=== PATIENT | female | born 2000 | race African-American/Black ===

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

== ENCOUNTER 2021-11-09 15:48 | Emergency (ER) | payer OTHER, SELFPAY ==
[2021-11-09 15:58] VITALS: BP 121/77; PULSE 101; RESP 18; TEMP 36.6; O2SAT 100
[2021-11-09 17:08] LABS: Basophils Percent Auto 0.7 % (0.2-1.2); Eosinophils Percent Auto 0.9 % (0-4.4); Hematocrit 37.1 % (37.0-47.0); Hemoglobin 11.5 g/dL (12.0-15.0); Lymphocytes Absolute Auto 1.44 K/mm3 (0.9-3.2); Mean Corpuscular Hemoglobin 25.4 pg (26-34); Mean Corpuscular Volume 81.9 fl (80-100); Monocytes Absolute Auto 0.5 K/mm3 (0.1-0.6); Monocytes Percent Auto 10.6 % (2.6-8.5); Neutrophils Absolute Auto 2.4 K/mm3 (1.3-6.7); Neutrophils Percent Auto 54.8 % (45.5-73.1); Platelet Count Result 203 k/mm3 (150-375); Red Blood Count 4.53 M/mm3 (4.2-5.4); Red Cell Distribution Width 16.5 % (11.5-14.5); White Blood Count 4.4 K/mm3 (4.5-10.0)
[2021-11-09 17:12] LABS: Appearance Urine Clear (Clear); Bilirubin Urine Negative (Negative); Blood Urine Negative (Negative); Color Urine Yellow (Yellow); Glucose Urine UA Negative (Negative); Ketones Urine Negative (Negative); Leukocyte Esterase Ur Negative LEU/UL (Negative); Nitrate Urine Negative (Negative); Protein Urine Trace mg/dL (Negative); Specific Grav Ur >= 1.030 (1.001-1.035); Urobilinogen Urine 0.2 mg/dL (<2.0); pH Urine 5.5 (5.0-9.0)
[2021-11-09 17:19] LABS: Alanine Aminotransferase 19 U/L (4-35); Albumin Level 4.1 g/dL (3.5-5.1); Alkaline Phosphatase 43 U/L (38-126); Anion Gap 3 mmol/L (8-16); Aspartate Amino Transferase 46 U/L (14-36); Bilirubin,Total 0.3 mg/dL (0.2-1.3); Blood Urea Nitrogen 8 mg/dL (7-17); Calcium 8.8 mg/dL (8.4-10.2); Carbon Dioxide 25 mmol/L (22-30); Chloride 107 mmol/L (98-107); Estimated CRCL calculation 87 ml/min; Estimated Glomerular Filt Rate > 60; Glucose 84 mg/dL (65-110); Potassium 3.6 mmol/L (3.4-5.0); Sodium 135 mmol/L (137-145)
[2021-11-09 17:29] LABS: Mucus Urine Heavy /lpf; RBC Urine 0-2 /hpf (0-2); Squamous Epithelial Cell Urine Few /hpf (Few); WBC Urine 0-3 /hpf
--- NOTE | 2021-11-09 17:38 | ED.FEMALEGU ---
HPI - Female Genitourinary General Chief complaint: Vaginal Bleeding Stated complaint: vaginal bleeding Time Seen by Provider: 11/09/21 16:04 Source: patient History of Present Illness HPI Narrative: Patient presents with vaginal spotting. She was previously on the Depo shot removed in July was having normal menses until approximately 2 weeks ago. 2 weeks ago she started her normal menses but has continued to have some vaginal spotting she describes scant spotting denies any passage of blood clots denies any abdominal pain nausea vomiting or diarrhea. Reports prior to the Provera she had normal menses as well. Reports she is sexually active not using any form of contraception at this time. She denies any vaginal bleeding or discharge denies any urinary symptoms Related Data Home Medications Medication Instructions Recorded Confirmed ferrous sulfate [Iron (ferrous 325 mg PO DAILY 11/09/21 sulfate)] Allergies Allergy/AdvReac Type Severity Reaction Status Date / Time No Known Allergies Allergy Verified 11/09/21 16:24 Review of Systems Review of Systems: CONSTITUTIONAL: Denies fever, chills, or sweats. EYES: Denies visual changes, redness, or discharge. ENT: Denies rhinorrhea, congestion, sore throat, or otalgia. CARDIOVASCULAR: Denies chest pain, palpitations, or edema. RESPIRATORY: Denies cough or dyspnea. GASTROINTESTINAL: Denies abdominal pain, nausea, vomiting, or diarrhea. GENITOURINARY: Denies dysuria or hematuria. SKIN: Denies rash or itching. MUSCULOSKELETAL: Denies back pain, joint pain, or myalgia. NEUROLOGIC: Denies headache, numbness, dizziness, or weakness. PSYCHIATRIC: Denies anxiety or depression. All systems reviewed & are unremarkable except as noted in HPI and below PMFSH Past Medical History Medical History (Updated 11/09/21 @ 17:41 by Montrell Hilton MD) ADHD Social History Social History Smoking status: Unknown if ever smoked Gender identity (if verbalized by the patient): Female Exam Narrative: GENERAL: Well-appearing, well-nourished, and in no acute distress. HEAD: Normocephalic, atraumatic. EYES: PERRLA and EOMI. ENT: Nares clear, no rhinorrhea or epistaxis. Mucous membranes moist. NECK: Supple. No masses. No JVD ABDOMEN: Soft, nontender, nondistended, normal active bowel sounds. : Medical [employer] Technicians present throughout the entire exam. There are no external lesions or inguinal lymphadenopathy no ulceration. Speculum exam was with scant white discharge in the vaginal vault no active bleeding no blood at the cervical os EXTREMITIES: Normal range of motion. No edema. SKIN: Warm, dry, no rash. NEURO: No focal deficits. Alert and oriented x3. PSYCH: Normal mood and affect. Course Reevaluation(s) Reevaluation #1: Patient resting comfortably results and plan reviewed with patient. Patient is comfortable outpatient plan. Date: 11/09/21 Time: 17:38 Vital Signs Vital signs: Vital Signs Temperature 36.6 C 11/09/21 15:58 Pulse Rate 101 H 11/09/21 15:58 Respiratory Rate 18 11/09/21 15:58 Blood Pressure 121/77 11/09/21 15:58 Pulse Oximetry 100 11/09/21 15:58 Temperature 36.6 C 11/09/21 15:58 Pulse Rate 101 H 11/09/21 15:58 Respiratory Rate 18 11/09/21 15:58 Blood Pressure 121/77 11/09/21 15:58 Pulse Oximetry 100 11/09/21 15:58 MDM - Female Genitourinary MDM Narrative Medical decision making narrative: H&P as above, vss, pt looks clinically well, exam with scant white discharge in the vaginal vault, labs clinically unremarkable to include a urine , additional labs/img considered. symptomatic relief available as needed, patient was offered empiric antibiotics for STIs declined appears to follow-up with her primary care provider with regards her test results prior to initiating therapies on reevaluation pt continues to looks clinically well. Symptoms remain of unclear etiology, dns si
[2021-11-09 17:48] LABS: Add Urine Microscopic? YES
== END 2021-11-09 17:49 | disposition home or self-care (01) ==
PROVIDERS: Emergency Provider Emergency Medicine; PCP Pediatrics
DX: N93.9 Abnormal uterine and vaginal bleeding, unspecified (principal)
CPT/HCPCS: 36415; 80053; 81001; 81025; 85025; 87070; 87147; 87491; 87591; 87808; 99284

== ENCOUNTER 2023-06-05 15:54 | Emergency (ER) | payer OTHER, SELFPAY ==
--- NOTE | ~2023-06-05 | US_ITS ---
EXAMINATION: US pelvic complete w TV DATE: 06/05/2023 21:45 INDICATION: Possible retained products of conception on outside institution ultrasound TECHNIQUE: Multiple transabdominal and endovaginal sonographic images of the pelvis were obtained. COMPARISON: None. FINDINGS: The anteverted uterus measures 7.7 x 3.7 x 5.9 cm. The endometrial complex measures 10 mm in thickne ss. There appears to be a greater than typical fundal internal indentation between the uterine horns suspicious for an arcuate uterus. There is a heterogeneous appearance to the endometrial complex with a central 1.7 x 0.7 x 1.1 cm hypoechoic region with internal vascular flow extending from the myomet rium likely representing some retained products of conception with differential including endometrial polyp or pedunculated submucosal fibroid.. The right ovary measures 4.1 x 1.5 x 3.3 cm. The left ova ry measures 2.8 x 2.0 x 1.5 cm. Vascular flow is identified in both ovaries on color Doppler. There a re several anechoic cysts/follicles at both ovaries. There is a small amount of free fluid in the pel vis. IMPRESSION: 1. Ovoid mass or hypoechoic region within the endometrial complex with differential including retaine d products of conception or pre-existing endometrial polyp or pedunculated submucosal fibroid. 2. 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 Reviewed, dictated and finalized at location [facility] IMPRESSION: 1. Ovoid mass or hypoechoic region within the endometrial complex with differen tial including retained products of conception or pre-existing endometrial poly p or pedunculated submucosal fibroid. 2. 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
[2023-06-05 15:54] VITALS: BP 117/67; PULSE 100; RESP 16; TEMP 37.1; O2SAT 100
[2023-06-05 20:01] LABS: Basophils Percent Auto 0.6 % (0.2-1.2); Eosinophils Percent Auto 0.8 % (0-4.4); Hematocrit 39.2 % (37.0-47.0); Hemoglobin 12.6 g/dL (12.0-15.0); Immature Granulocyte Absolute 0.01 K/mm3 (0.00-0.031); Immature Granulocyte Percent A 0.2 % (0-0.5); Lymphocytes Absolute Auto 1.56 K/mm3 (0.9-3.2); Lymphocytes Percent Auto 32.6 % (18.3-44.2); Mean Corpuscular HGB Conc 32.1 g/dl (32-36); Mean Corpuscular Hemoglobin 26.6 pg (26-34); Mean Corpuscular Volume 82.7 fl (80-100); Mean Platelet Volume 11.8 fl (7.4-10.4); Monocytes Absolute Auto 0.5 K/mm3 (0.1-0.6); Neutrophils Absolute Auto 2.7 K/mm3 (1.3-6.7); Neutrophils Percent Auto 55.8 % (45.5-73.1); Platelet Count Result 221 k/mm3 (150-375); Red Blood Count 4.74 M/mm3 (4.2-5.4); Red Cell Distribution Width 13.5 % (11.5-14.5); White Blood Count 4.8 K/mm3 (4.5-10.0)
[2023-06-05 20:07] LABS: Appearance Urine Clear (Clear); Bacteria Urine Rare /hpf; Bilirubin Urine Negative (Negative); Blood Urine Negative (Negative); Color Urine Yellow (Yellow); Glucose Urine UA Negative (Negative); Ketones Urine Negative (Negative); Leukocyte Esterase Ur Negative LEU/UL (Negative); Nitrate Urine Negative (Negative); Non Pathogenic Casts 0-2; Protein Urine Trace mg/dL (Negative); RBC Urine 0-2 /hpf (0-2); Specific Grav Ur 1.021 (1.001-1.035); Squamous Epithelial Cell Urine Occasional /hpf (Few); WBC Urine 0-5 /hpf
[2023-06-05 20:12] LABS: Add Urine Microscopic? YES
[2023-06-05 20:23] LABS: Alanine Aminotransferase 16 U/L (6-35); Albumin Level 4.8 g/dL (3.5-5.1); Alkaline Phosphatase 48 U/L (38-126); Anion Gap 12 mmol/L (8-16); Aspartate Amino Transferase 23 U/L (14-36); Bilirubin,Total 0.3 mg/dL (0.2-1.3); Blood Urea Nitrogen 10 mg/dL (7-17); Calcium 9.5 mg/dL (8.4-10.2); Carbon Dioxide 24 mmol/L (22-30); Chloride 103 mmol/L (98-107); Estimated CRCL calculation 93 ml/min; Estimated Glomerular Filt Rate > 60; Glucose 93 mg/dL (65-110); Potassium 3.3 mmol/L (3.4-5.0); Sodium 139 mmol/L (137-145)
[2023-06-05 20:39] LABS: Beta HCG Quantitative 12.52 mIU/ML
--- NOTE | 2023-06-05 21:31 | ED.PREGNANCY ---
HPI - General Chief complaint: Vaginal Bleeding Stated complaint: vaginal bleeding Time Seen by Provider: 06/05/23 20:37 Source: patient and old records reviewed Mode of arrival: ambulatory Limitations: no limitations History of Present Illness HPI Narrative: Patient is a 23 y/o female who presents to the ED with c/o vaginal bleeding. Patient reports she you developed vaginal bleeding earlier this month. She was seen at a hospital in [place] on 05/19 and found out she was . Last normal menstrual period was in March. Reports 1 previous at age 18 which resulted in a stillbirth. Patient's beta hCG level at her hospital visit was 284. She had an ultrasound obtained and showed evidence for retained POC. Patient was advised to follow-up with OBGYN, however she has not done so. She developed bleeding again yesterday into today which prompted her presentation. She reports some intermittent cramping. Denies nausea, vomiting, fevers, feeling ill otherwise. Related Data Home Medications Medication Instructions Recorded Confirmed ferrous sulfate 325 mg (65 mg 325 mg PO DAILY 11/09/21 iron) tablet (Iron (ferrous sulfate)) Allergies Allergy/AdvReac Type Severity Reaction Status Date / Time No Known Allergies Allergy Verified 06/05/23 18:20 Review of Systems Review of Systems: CONSTITUTIONAL: Denies fever, chills, or sweats. GASTROINTESTINAL: See HPI. GENITOURINARY: See HPI. SKIN: Denies rash or itching. MUSCULOSKELETAL: Denies back pain, joint pain, or myalgia. All systems reviewed & are unremarkable except as noted in HPI and below PMFSH Past Medical History Medical History ADHD Social History Social History Smoking status: Unknown if ever smoked Gender identity (if verbalized by the patient): Female Exam Narrative: GENERAL: Well appearing, well-nourished, non-toxic, in no acute distress. HEAD: Normocephalic, atraumatic. NECK: Supple. No adenopathy, no masses. RESPIRATORY: Airway patent, respirations nonlabored. Clear to auscultation bilaterally, no rales, rhonchi, wheezing. CARDIOVASCULAR: Regular rate and rhythm without murmurs, rubs, or gallops. Peripheral pulses 2+ and equal bilaterally. ABDOMINAL: Soft, No significant tenderness throughout abdomen, nondistended, no hepatosplenomegaly. Normoactive BS. PELVIC: Normal external genitialia. no bleeding or clots noted, and no visible products in vaginal vault. Mild amount of white physiologic discharge present. No significant CMT. MUSCULOSKELETAL: Moves all extremities. Strength/ROM intact without gross deformities. SKIN: Warm, dry, normal color. No rashes. NEURO: A&O X3. Speech clear. Cranial nerves II-XII grossly intact. Steady gait. No ataxic movements. PSYCHIATRIC: Appropriate mood and affect. Normal interaction. Course Vital Signs Vital signs: Vital Signs Temperature 98.7 F 06/05/23 15:54 Pulse Rate 100 06/05/23 15:54 Respiratory Rate 16 06/05/23 15:54 Blood Pressure 117/67 06/05/23 15:54 Pulse Oximetry 100 06/05/23 15:54 Oxygen Delivery Room Air 06/05/23 15:54 Temperature 98.4 F 06/05/23 22:23 Pulse Rate 87 06/05/23 22:23 Respiratory Rate 18 06/05/23 22:23 Blood Pressure 112/71 06/05/23 22:23 Pulse Oximetry 100 06/05/23 22:23 Oxygen Delivery Room Air 06/05/23 15:54 MDM - OB/Uterine Contractions MDM Narrative Medical decision making narrative: Patient presented to ED the with vaginal bleeding, recently told she had been /miscarried, ultrasound performed at out of state hospital showing retained POC. Vital stable upon arrival. Patient no acute distress. Nontoxic appearing. Beta quant today only 12. Appropriately down trending from previous records at outside hospital with level of 284. pelvic exam was
[2023-06-05 22:23] VITALS: BP 112/71; PULSE 87; RESP 18; TEMP 36.9; O2SAT 100
== END 2023-06-05 22:24 | disposition home or self-care (01) ==
PROVIDERS: Student in an Organized Health Care Education/Training Program; Emergency Provider Physician Assistant
DX: O02.1 Missed abortion (principal)
CPT/HCPCS: 36415; 76830; 76856; 80053; 81001; 81025; 84702; 85025; 86850; 86900; 86901; 99284

== ENCOUNTER 2024-08-12 16:03 | Emergency (ER) | payer OTHER, SELFPAY ==
--- OUTSIDE RECORDS SUMMARY | 2024-08-12 16:28 | XMS_ITS | Data Portability ---
Author Organization [facility] [place] Address [address] [place] [address] Assessment Encounter Date Assessment Date Assessment LastModified by Organization Details LastModified Time 07/15/2021 07/15/2021 Annual gynecological exam performed. Patient will come back in a year unless there are new symptoms. [email or web address] Not available 07/15/2021 11:12:25 Plan of Treatment Reminders Order Date Submit Date Provider Last Modified By Organization Details Last Modified Time Details Appointments None recorded. Lab None recorded. Referral None recorded. Procedures None recorded. Surgeries None recorded. Imaging None recorded. Medication Orders Depo-Horse Wrangler a 150 mg/mL intramuscul ar syringe 2021 022 [id number], [address], [place], [id number], 16:55:44 Depo-Horse Wrangler a 150 mg/mL intramuscul ar syringe 2021 022 [id number], [address], [place], [id number], 11:32:59 Patient TargetsNo targets recorded. Patient InstructionsNo instructions recorded. Reason for Referral None Reported. Results Created Date Observation Date Name Description Value Unit Range Abnormal Flag Note LastModifiedBy Organization Detail LastModifiedTime 01/05/20 22 01/04/2022 BHCG, QUANT ITATI VE B-HCG <0.2 mIU/m L This assay was perfo rmed using [employer] ratio n reage nts and test kits. Value s obtai pearl with other assay metho ds or kits canno t be used inter alexandra eably . Refer ence Range s: Non-p regna nt, preme nopau daniel women : 0.0-5 .3 mIU/m L Postm enopa usal women : 0.0-7 .0 mIU/m L Naila l Pregn benjy: Gesta palmer l Age bHCG Conc. - mIU/m L 3 Weeks 5.8 - 71.7 4 Weeks 9.5 - 750 5 Weeks 217-7 138 6 Weeks 158 - 31,79 5 7 Weeks 3,697 - 162,5 63 8 Weeks 32,06 5 - 149,5 71 9 Weeks 63,80 3 - 151,4 10 10 Weeks 46,50 9 - 186,9 77 12 Weeks 27,83 2 - 210,6 12 14 Weeks 13,95 0 - 62,53 0 15 Weeks 12,03 9 - 70,97 1 16 Weeks 9,040 - 56,45 1 17 Weeks 8,175 - 55,86 8 18 Weeks 8,099 - 58,17 6 Not Available [facility] (Lab) [address], [place], [address], 01/05/2022 05:00:12 Result Notes None recorded. Problems Name Problem SNOMED Code Status Onset Date Resolution Date Notes Provider Name and Address Organization Details Recorded Time Delivery finding Completed 201807/15/2021 labor w/ delivery, fetus 1;Recorde d Elsewhere : No Locati on: [facility] So urce: EHR Chron ic: N Practic e ID: [id number] Bill able Time: 09:00:00 AM Lois [facility] 2 10:57:30 Clinical finding Completed 201807/15/2021 Encounter for surveilla nce of injectabl e contracep tive;Tad rded Elsewhere : No Locati on: [facility] So urce: EHR Chron ic: N Practic e ID: [id number] Bill able Time: 09:30:00 AM Lois Andre [facility] 2 10:57:27 Uses combined oral contrace ption [id number] Completed 201807/15/2021 Encounter for initial prescript ion of contracep tive pills;Pra ctice ID: [id number] Lois Andre [facility] 2 10:57:28 Problem Notes None recorded. Medical Equipment None Reported. Allergies No known drug allergies Medications Name Sig Start Date Stop Date Status Note LastModified by Organization Details LastModified Time medroxypro gesterone 150 mg/mL intramuscu lar suspension inject 1 millilite r by intramusc ular route every 3 months 2018 active Prescribe d Elsewhere : No Locati on: [facility] Srinivasan french By: beckran En counter DateTime: 9 05:16:55 PM Not Available Not Available Not Available medroxypro gesterone 150 mg/mL intramuscu lar syringe ADMINISTE R 1 ML IN THE MUSCLE EVERY 3 MONTHS active Not Available Not Available No t Available Vitals Date Recorded Body height Body mass index (BMI) Body mass index (BMI) Percentile per age and sex Body weight Systolic blood pressure Diastolic blood pressure Provider Name and Address Organization Details Last Updated DateTime 2 158.75 cm 22.9 kg/m2 62 % 73023.2 3 g 122 mm[Hg] 78 mm[Hg] Lois Andre [facility] 2 11:13:12 Social History Question Answer Notes LastModified by Organizat ion Details LastModified Time Tobacco Smoking Status Never Smoker Lois Andre [facility] 07/15/2021 11:05:04 What Is Your Level Of Alcohol Consumption? None Information not available 07/15/2021 Are You Blind Or Do You Have Difficulty Seeing? No Information not available 07/15/2021 What Is Your Level Of Caffeine Consumption? Occasional Information not available 07/15/2021 Are You Deaf Or Do You Have Serious Difficulty Hearing? No Information not available 07/15/2021 What Type Of Diet Are You Following? REGULAR Information not available 07/15/2021 Do You Use Your Seat Belt Or Car Seat Routinely? Yes Information not available 07/15/2021 Do You Have Smoke And Carbon Monoxide Detectors In Your Home? Yes Information not available 07/15/2021 Do You Feel Stressed (tense, Restless, Nervous, Or Anxious, Or Unable To Sleep At Night)? [id number] Information not available 07/15/2021 Do You Use Any Illicit Or Recreational Drugs? No Information not available 07/15/2021 Do You Use Sunscreen Routinely? Yes Information not available 07/15/2021 Sex: Unknown Functional Status Question Answer Note LastModified by Organizat ion Details LastModified Time Are you able to walk? YESWOREST Information not available 07/15/2021 What is your exercise level? Occasional Information not available 07/15/2021 Mental Status None recorded. Family History Relationship Description Onset Age of this Age Resolved Age Notes LastModified by Organization Details LastModified Time Maternal Grandmother Asthma Not available 2021 11:04:26 Maternal Grandmother Diabetes mellitus Not available 2021 11:04:34 Sister Asthma Not available 12/2021 11:04:26 Unspecified Relation Malignant neoplasm of bone matern al cousin Not available 07/15/2021 11:14:56 Medical History Condition Response Depression/ depression Y Gynecological History Statement/Question Response Date of LMP 07/14/2021 STIs/STDs N Current Control Method None Are cycles usually normal Y Sexually Active? Y Menses Monthly Y Age of first menstrual cycle 11 Date of Last Pap Smear Sexual Problems? N Desired Control Method Hormonal In jection LMP Definite Obstetrics History GPAL:G 1 P 0 0 0 0 Type Value Living 0 Total 1 Past Encounters Encounter ID Performer Location Encounter Start Date Encounter Closed Date Diagnosis/Indication Diagnosis SNOMED-CT Code Diagnosis ICD10 Code Diagnosis Note [id number] ROS [facility] [address] [address] 07/15/2021 10:40:52 07/15/2021 12:12:11 Gynecologic examination 26059023 Z01.419 Take Calcium with Vitamin D 1200mg daily if not receiving in daily diet. It is strongly advised to have an annual flu shot and up can obtain at most pharmacies . If you have not had a TDap shot in the last 10 years you should obtain one as well. Discussed with patient & provided with informatio n regarding Gardisil vaccine to prevent the 4 strains for HPV that cause cervical cancer. Encourage safe sexual practices, to use condoms and limit partners if not already in a monogamous relationsh ip. Do monthly self breast exams. BRCA testing is now available for patients with strong genetic history of female cancer. If interested contact the office. Engage in daily exercise of low impact aerobic exercise 45-60 minutes 4-5 times weekly. Avoid tobacco, illicit drugs, and alcohol. This lifestyle behavior pattern will lead to less health conditions and longer life span. If BMI greater than 25 weight watchers or dietary consult advised. Pap smear is not recommende d prior to the age of 21. If you have any concerns, pelvic, or vaginal problems we can discuss testing. Patient received above instructio ns, and questions have been answered. If you have any questions please call or respond to this email. Patient was made aware of the patient portal and may obtain a paper copy of today's plan if desired.Pr imary pap due next year.Discu ssed cervical cancer screening. STD urine sent.Smoki ng cessation encouraged . Contracept ion care management 902684800 Z30.9 On menses today & would like to restart Depo injections for contracept ion & period regulation .She is aware that a back up method such as condoms is recommende d for the first 4wks to avoid . Depo frequency/ routine of administra tion, risks/bene fits, most common side effects, contraindi cations discussed today with understand ing reviewed.S he has previously been on this method so is familiar with regimen.Wi ll go to pharmacy & grab the medication which can be administer ed today.Unde rstanding verbalized . [id number] Augustina Martinez , [facility] [address] [address] 07/15/2021 16:52:32 07/16/2021 11:13:58 Contraception care management [id number] Z30.9 On menses today & would like to restart Depo injections for contracept ion & period regulation .She is aware that a back up method such as condoms is recommende d for the first 4wks to avoid . Depo frequency/ routine of administra tion, risks/bene fits, most common side effects, contraindi cations discussed today with understand ing reviewed.S he has previously been on this method so is familiar with regimen.Wi ll go to pharmacy & grab the medication which can be administer ed today.Unde rstanding verbalized . Health Concerns Section Related Observation LastModified by Organization Detai ls LastModified Time None Recorded Concern Status LastModified by Organization Details LastModified Time None Recorded Advance Directives Directive None Recorded Payers Encounter Date Sequence Insurance Name Policy Number Policy Monzon Covered Member ID Monzon Member ID Guarantor Name 07/15/2021 1 [facility] ON OR AFTER 01/07/21 (MEDICAID REPLACEMENT - HMO) Betty Page [id number] Betty Page 07/15/2021 1 [facility] ON OR AFTER 01/07/21 (MEDICAID REPLACEMENT - HMO) Betty Page [id number] Betty Page Notes Date Note Type Note Provider Name and Address Organization Details Recorded Time 07/15/2021 text/html Annual GYNReport ed bypatient.History:n o gynecologic complaints Menstrual cycle:Normal menses Urinary symptoms:No hematuria; No incontinence Vulva:No genital lesion Vagina:Normal vaginal discharge Breast:No breast pain; No breast lump; No nipple discharge Current Contraception:Condo ms; Wants to discuss contraceptive options; Requests testing for sexually transmitted infections Sexual complaints:No sexual complaints; No pain during intercourse; Normal libido Menopausal Symptoms:No menopausal symptoms; Normal vaginal lubrication Psychological symptoms:No depression; No anxiety; No PMDD Preventive measures:Encourage self breast examination; Encourage regular exercise; Encourage no tobacco use; Encourage regular mammograms starting age 40 Augustina Martinez, [facility] [address], [place], [address], [facility] 07/16/2021 11:05:25 OBGyn Episode Ob Episode Information Episode Created Date Number of Fetuses Patient Bloodtype Patient rh Status Prepregnancy Weight lbs Domestic Partner Domestic Partner Phone Father Name Dredge Hand Status 07/15/19 22 1 CLOSED Fetus Data First Name Last Name Admitted to NICU Weight (g) Sex Living Outcome Pediatric Complications Fetus ID Race Codes Race Delivery Type M Demise [id number] Vaginal Delivery Stanley Calculation Initial Stanley Date Initial Exam Date Initial Exam Provider Initial Ultrasound Date Last Menstrual Period Date Ultra Sound Weeks Gestation 0 Eighteen To Twenty Week Stanley Update Ultra Sound Date Fundal Height At Umbil Quickening Date Ultra Sound Latest Weeks Gestation Final Stanley Confirmed By Final Stanley Confirmed Date Final Stanley Date Ultra Sound Latest Days Gestation 0 0 Menstrual History Last Menstrual Date Menses Monthly On Bcp Conception Prior Menses Frequency Hcg Plus Date Menarche Onset Age Delivery Information Delivery Date Delivery Type Labor Anesthesia Weeks Gestation Incision Type Labor Labor Length Hrs Delivered By Post Complications Tubal Sterilization Discharge Date Comments 9 Discharge Information Feeding Method Contraceptive Method Maternal HG B and HCT Levels
[2024-08-12 16:30] VITALS: BP 118/63; PULSE 107; RESP 18; TEMP 36.1; O2SAT 100
--- NOTE | 2024-08-12 16:33 | ED.GENADULT ---
[facility] - General Adult General Chief complaint: Unspecified Stated complaint: suture removal - foot Time Seen by Provider: 08/12/24 16:33 Source: patient Mode of arrival: ambulatory Limitations: no limitations History of Present Illness HPI narrative: 24-year-old female presents to the ED for removal of right foot sutures after 1 week. Reports some pain to the area but no drainage. Denies fevers or chills. Related Data Home Medications ?Medication ?Instructions ?Recorded ?Confirmed ?Last Taken ?Type ferrous sulfate 325 mg (65 mg 325 mg PO DAILY 11/09/21 Unknown History iron) tablet (Iron (ferrous sulfate)) Allergies Allergy/AdvReac Type Severity Reaction Status Date / Time No Known Allergies Allergy Verified 06/05/23 18:20 Review of Systems Review of Systems: All systems as dictated in [facility] Past Medical History Medical History (Updated 08/12/24 @ 16:35 by Hansel Weldon PA-C) ADHD Social History Social History Smoking status: Unknown if ever smoked Gender identity (if verbalized by the patient): Female Exam Narrative: GENERAL: Well-appearing, well-nourished, and in no acute distress. SKIN: [address] to the right lateral foot. No purulent drainage or surrounding erythema. There is moderate tenderness at the laceration site, however minimal warmth. This skin is dark in the wound site and appears to be a possible small hematoma. NEURO: Alert and oriented x4. No focal deficits. PSYCH: Normal mood and affect. Course Vital Signs Vital signs: Vital Signs Temperature 97.0 F L 08/12/24 16:30 Pulse Rate 107 H 08/12/24 16:30 Respiratory Rate 18 08/12/24 16:30 Blood Pressure 118/63 08/12/24 16:30 Pulse Oximetry 100 08/12/24 16:30 Oxygen Delivery Room Air 08/12/24 16:30 Temperature 97.0 F L 08/12/24 16:30 Pulse Rate 107 H 08/12/24 16:30 Respiratory Rate 18 08/12/24 16:30 Blood Pressure 118/63 08/12/24 16:30 Pulse Oximetry 100 08/12/24 16:30 Oxygen Delivery Room Air 08/12/24 16:30 Medical Decision Making Vital Signs Vital Signs: Vital Signs Temperature 97.0 F L 08/12/24 16:30 Pulse Rate 107 H 08/12/24 16:30 Respiratory Rate 18 08/12/24 16:30 Blood Pressure 118/63 08/12/24 16:30 Pulse Oximetry 100 08/12/24 16:30 Oxygen Delivery Room Air 08/12/24 16:30 Temperature 97.0 F L 08/12/24 16:30 Pulse Rate 107 H 08/12/24 16:30 Respiratory Rate 18 08/12/24 16:30 Blood Pressure 118/63 08/12/24 16:30 Pulse Oximetry 100 08/12/24 16:30 Oxygen Delivery Room Air 08/12/24 16:30 Discharge Plan Discharge Clinical Impression: Encounter for removal of sutures Patient Disposition: Home, Self-Care Condition: Stable Instructions: Antibiotic Form Additional Instructions: Exam today is reassuring. You were seen for suture removal. Please use ice for pain as well as Tylenol and ibuprofen. Take antibiotics as prescribed. If you have any new or worsening symptoms please return to the ER for further evaluation. Patient Language: [place] Prescriptions: New cephalexin 500 mg capsule 500 mg PO Q8H Qty: 15 0RF No Action ferrous sulfate [Iron (ferrous sulfate)] 325 mg (65 mg iron) Tablet 325 mg PO DAILY Follow-up/Referrals: UNKNOWN,DOCTOR [Primary Care Provider] - Time of Disposition: 16:35
== END 2024-08-12 16:58 | disposition home or self-care (01) ==
PROVIDERS: Emergency Provider Physician Assistant
DX: S91.301D Unspecified open wound, right foot, subsequent encounter (principal); X58.XXXD Exposure to other specified factors, subsequent encounter
CPT/HCPCS: 15853; 99281; 99283

== ENCOUNTER 2025-02-01 00:55 | Emergency (ER) | payer OTHER, SELFPAY ==
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
--- OUTSIDE RECORDS SUMMARY | 2025-02-01 00:57 | XMS_ITS | Data Portability ---
Author Organization [facility] Address [address] [place] [address] Assessment Encounter Date Assessment Date Assessment LastModified by Organization Details LastModified Time 07/15/2021 07/15/2021 Annual gynecological exam performed. Patient will come back in a year unless there are new symptoms. Not available 07/15/2021 11:12:25 Plan of Treatment Reminders Order Date Submit Date Provider Last Modified By Organization Details Last Modified Time Details Appointments U/S OB BASELIN E 2024 02:00P M ULTRASOUND Not available Not available Not available OB ROUTINE 2024 03:00P M MICHELLE CANDELARIO MD Not available Not available Not available Lab genetic screen, unspeci fied specime n 2024 025 [email or web address] [facility], [address], [place], [address], 12/31/2024 15:13:36 aneuplo idy risk, chromos ome specifi c circula ting cell free (ccf) DNA, materna l serum 2024 025 FRANCI [facility], [address], [place], [address], 01/28/2025 02:21:11 HbA1c (hemogl obin A1c), blood 2024 025 [facility] (Lab), [address], [place], [address], 01/22/2025 12:52:18 type + screen, blood 2024 025 [facility] (Lab), [address], [place], [address], 01/22/2025 12:52:17 rubella igg Ab, titer, serum 2024 025 [facility] (Lab), [address], [place], [address], 01/22/2025 12:52:16 CBC w/ auto diff 2024 025 [facility] (Lab), [address], [place], [address], 01/22/2025 12:52:15 hepatit is C virus Ab, serum 2024 025 [facility] (Lab), [address], [place], [address], 01/22/2025 12:52:15 HBsAg (hepati tis B surface Ag), serum 2024 025 [facility] (Lab), [address], [place], [address], 01/22/2025 12:52:16 RPR (rapid plasma reagin) , serum 2024 025 [facility] (Lab), [address], [place], [address], 01/22/2025 12:52:18 HIV 1+2 AB + HIV 1 p24 Ag, qualita tive immunoa ssay, serum 2024 025 [facility] (Lab), [address], [place], [address], 01/22/2025 12:52:14 TSH, serum or plasma 2024 025 [facility] (Lab), [address], [place], [address], 01/22/2025 12:52:17 Referral None recorde d. Procedures None recorde d. Surgeries None recorde d. Imaging US, obstetr ic, limited 2024 025 [email or web address] [address], [address], [place], [address], 01/21/2025 17:35:16 US, obstetr ic, nuchal translu cency 2024 025 [email or web address] [address], [address], [place], [address], 12/31/2024 17:40:33 Medication Orders ondanse thelma 8 mg disinte grating tablet 2024 025 [id number], [address] [place], [place], [id number], 12/31/2024 15:13:44 Depo-Pr overa 150 mg/mL intramu scular syringe 2021 022 [email or web address] [id number], [address], [place], [place], [id number], 12/31/2024 14:50:15 Patient TargetsNo targets recorded. Patient InstructionsNo instructions [...] .0 mIU/m L Naila l Pregn benjy: Danyaa palmer l Age bHCG Conc. - mIU/m [...] Weeks 8,099 - 58,17 6 Not Available [facility] (Lab) [address], [place], [address], 01/05/2022 05:00:12 01/01/20 25 12/31/2024 IMAGE GUIDE D PAP, REFLE X HPV IF ASCUS ONLY image guided Pap, reflex HPV ASCUS only SEE RESULT S BELOW abnormal CASE REPOR T: Cytol ogy Gynec ologi rc Repor t Case: [id number] Autho lucero g Provi sylvia: Aruna Huertas MD Colle cted: 12/31 1514 Order ing Locat ion: [place] Patho logy Recei arturo: 01/01 0942 First Scree n: Strut z, Willi am, CT Patho logis t: Lamont Alexandra MD Speci men: Ky lemus Pap - Image d, Cervi x STATE MENT OF ADEQU ACY: Satis facto ry for evalu ation Trans forma tion zone compo nent absen t Parti ally obscu ring blood prese nt. ----- ----- ----- ----- ----- ----- ----- ----- ----- ----- ----- ----- ----- ----- ----- ----- ----- ---- FINAL DIAGN OSIS: Epith elial Cell Abnor malit y, Squam ous Cell: Atypi rc Squam ous Cells of Undet ermin ed Signi patrick ce (ASC- US). HPV RESUL TS: HPV mRNA E6/E7 : No HPV mRNA Detec preeti NOTE: This high risk HPV mRNA assay detec ts fourt een high- risk HPV types (16, 18, 31, 33, 35, 39, 45, 51, 52, 56, 58, 59, 66, 68) witho ut diffe renti ation . COMME NT: This speci men was revie wed by a Cytot echno logis t and/o r Patho logis t (as indic ated in this repor t) after evalu ation using the Thinp rep Imagi ng Syste m. CLINI RC INFOR MATIO N: Menst rual Statu s: LMP (if appli cable ): Clini rc Histo ry/Pr eviou s Pap: Type of Neopl melanie (if appli cable ): Signi fican t Clini rc Findi ngs: Other Histo ry: Hormo laron (if appli cable ): SUGROBIN STED FOLLO W-UP: Follo w up as warra nted, based on curre nt guide lines and indiv idual patie nt consi derat ions. Not Available [facility] (Lab) [address], [place], [address], 01/06/2025 19:31:16 01/01/20 25 12/31/2024 CT/GC AND TRICH OMONA S VAGIN RIGO (RRNA ), THINP REP VIAL CT/GC and trichomonas vaginalis (rrna), thinprep SEE RESULT S BELOW negati ve abnormal CHLAM YDIA TRACH OMATI S, PCR: Negat beto NEISS ERIA GONOR RHOEA E, PCR: Negat beto TRICH OMONA S VAGIN RIGO RIBOS OMAL RNA (RRNA ): Posit beto Not Available [facility] (Lab) [address], [place], [address], 01/06/2025 19:31:17 01/22/20 25 01/21/2025 HIV 1/2 ANTIG EN/AN TIBOD Y, REFLE X CONFI RMATI ON HIV antigen/anti body Nonrea ctive nonrea ctive HIV-1 antig en and HIV-1 /HIV- 2 antib odies were not detec preeti. No labor atory evide nce of HIV infec tion. Not Available [facility] (Lab) [address], [place], [address], 01/22/2025 12:52:14 01/22/2001/21/2025 HEPAT ITIS C ANTIB JAYME SCREE N, REFLE X TO CONFI RMATI ON hepatitis C antibody Non-re active non-re active Antib odies to HCV Not Detec preeti, does not exclu de the possi bilit y of expos ure to HCV. Not Available [facility] (Lab) [address], [place], [address], 01/22/2025 12:52:14 01/22/2001/21/2025 CBC W/DIF F WBC 6.7 10'3/ uL 3.5-10 .5 Not Available [facility] (Lab) [address], [place], [address], 01/22/2025 12:52:15 01/22/2001/21/2025 CBC W/DIF F RBC 4.36 10'6/ uL (based on docume nted legal sex) 3.80-5 .20 Not Available [facility] (Lab) [address], [place], [address], 01/22/2025 12:52:15 01/22/2001/21/2025 CBC W/DIF F HGB 12.0 g/dL (based on docume nted legal sex) 11.6-1 5.4 Not Available [facility] (Lab) [address], [place], [address], 01/22/2025 12:52:15 01/22/2001/21/2025 CBC W/DIF F HCT 37.0 % (based on docume nted legal sex) 34.0-4 5.0 Not Available [facility] (Lab) [address], [place], [address], 01/22/2025 12:52:15 01/22/20 25 01/21/2025 CBC W/DIF F MCV 84.9 fL 80.0-9 9.0 Not Available [facility] (Lab) [address], [place], [address], 01/22/2025 12:52:15 01/22/20 25 01/21/2025 CBC W/DIF F MCH 27.5 pg 27.0-3 4.0 Not Available [facility] (Lab) [address], [place], [address], 01/22/2025 12:52:15 01/22/20 25 01/21/2025 CBC W/DIF F MCHC 32.4 g/dL 32.0-3 5.5 Not Available [facility] (Lab) [address], [place], [address], 01/22/2025 12:52:15 01/22/20 25 01/21/2025 CBC W/DIF F RDW 13.6 % 11.0-1 5.0 Not Available [facility] (Lab) [address], [place], [address], 01/22/2025 12:52:15 01/22/2001/21/2025 CBC W/DIF F plt 206 10'3/ uL 150-40 0 Not Available [facility] (Lab) [address], [place], [address], 01/22/2025 12:52:15 01/22/2001/21/2025 CBC W/DIF F MPV 12.5 fL 8.8-12 .1 high Not Available [facility] (Lab) [address], [place], [address], 01/22/2025 12:52:15 01/22/20 01/21/2025 CBC W/DIF F NRBC's 0.0 % 0.0 Not Available [facility] (Lab) [address], [place], [address], 01/22/2025 12:52:15 01/22/2001/21/2025 CBC W/DIF F absolute NRBCs 0.0 10'3/ uL no refere nce range establ ished Not Available [facility] (Lab) [address], [place], [address], 01/22/2025 12:52:15 01/22/2001/21/2025 CBC W/DIF F neutrophils 69.0 % 34.0-7 3.0 Not Available [facility] (Lab) [address], [place], [address], 01/22/2025 12:52:15 01/22/2001/21/2025 CBC W/DIF F lymphocytes 21.0 % 15.0-5 0.0 Not Available [facility] (Lab) [address], [place], [address], 01/22/2025 12:52:15 01/22/2001/21/2025 CBC W/DIF F monocytes 9.0 % 1.0-15 .0 Not Available [facility] (Lab) [address], [place], [address], 01/22/2025 12:52:15 01/22/2001/21/2025 CBC W/DIF F eosinophils 0.4 % 0.0-8. 0 Not Available [facility] (Lab) [address], [place], [address], 01/22/2025 12:52:15 01/22/2001/21/2025 CBC W/DIF F basophils 0.3 % 0.0-2. 0 Not Available [facility] (Lab) [address] [place], [address], 01/22/2025 12:52:15 01/22/20 25 01/21/2025 CBC W/DIF F immature granulocytes 0.3 % no define d refere nce range Immat ure Granu locyt es (IG) repre sents autom ated enume ratio n of Metam yeloc ytes, Myelo cytes and Promy elocy luciano when IG is < 5%. Blast s are not inclu ded in IG and repor preeti separ ately if prese nt. Not Available [facility] (Lab) [address], [place], [address], 01/22/2025 12:52:15 01/22/2001/21/2025 CBC W/DIF F absolute neutrophils 4.6 10'3/ uL 1.5-8. 0 Not Available [facility] (Lab) [address], [place], [address], 01/22/2025 12:52:15 01/22/20 25 01/21/2025 CBC W/DIF F absolute lymphocytes 1.4 10'3/ uL 1.0-4. 0 Not Available [facility] (Lab) [address], [place], [address], 01/22/2025 12:52:15 01/22/20 25 01/21/2025 CBC W/DIF F absolute monocytes 0.6 10'3/ uL 0.2-1. 0 Not Available [facility] (Lab) [address] [place], [address], 01/22/2025 12:52:15 01/22/20 25 01/21/2025 CBC W/DIF F absolute eosinophils 0.0 10'3/ uL 0.0-0. 6 Not Available [facility] (Lab) [address] [place], [address], 01/22/2025 12:52:15 01/22/20 25 01/21/2025 CBC W/DIF F absolute basophils 0.0 10'3/ uL 0.0-0. 3 Not Available [facility] (Lab) [address] [facility] [place], [address], 01/22/2025 12:52:15 01/22/2001/21/2025 CBC W/DIF F absolute immature granulocytes 0.0 10'3/ uL 0.00-0 .10 Refer ence range s for nonbi nary/ inter sex or unspe cifie d gende r patie nts have not been estab lishe d. Pleas e refer to the follo wing table for range s estab lishe d for cisge nder patie nts and evalu ate in the clini rc giorgi xt of the indiv idual patie nt: https ://la bhand book. nm.or g/gen derx Not Available [facility] (Lab) [address], [place], [address], 01/22/2025 12:52:15 01/22/20 25 01/21/2025 RUBEL LA IGG ANTIB JAYME, QUANT rubella antibodies, IgG Reacti ve reacti ve Not Available [facility] (Lab) [address], [place], [address], 01/22/2025 12:52:16 01/22/2001/21/2025 RUBEL LA IGG ANTIB JAYME, QUANT rubella antibodies, IgG quant 112.3 IU/mL >=10 Non-r eacti ve (Non- Immun e) <10 IU/mL React beto (Immu ne) > or = 10 IU/mL Not Available [facility] (Lab) [address], [place], [address], 01/22/2025 12:52:16 01/22/2001/21/2025 HEPAT ITIS B SURFA CE ANTIG EN hepatitis B surface antigen Non-re active non-re active This assay was perfo rmed using [employer] ratio n reage nts and test kits. Value s obtai pearl with other assay metho ds or kits canno t be used inter alexandra eably . Not Available [facility] (Lab) [address], [place], [address], 01/22/2025 12:52:16 01/22/2001/21/2025 TSH, REFLE X FREE T4 TSH 1.12 uIU/m L 0.30-5 .33 Not Available [facility] (Lab) [address], [place], [address], 01/22/2025 12:52:17 01/22/2001/21/2025 TYPE/ RH/SC REEN ABO/Rh type A POS Not Available [facility] (Lab) [address], [place], [address], 01/22/2025 12:52:17 01/22/2001/21/2025 TYPE/ RH/SC REEN antibody screen NEG Not Available [facility] (Lab) [address], [place], [address], 01/22/2025 12:52:17 01/22/2001/21/2025 TYPE/ RH/SC REEN exp date 2024 23:59 Not Available [facility] (Lab) [address], [place], [address], 01/22/2025 12:52:17 01/22/2001/21/2025 HEMOG LOBIN A1C hemoglobin A1C 5.1 % 4.0-5. 6 The Ameri can [employer] luciano [employer] iatio n recom mends that a prima ry goal of thera py sammy d be a HBA1C of < 7% and that physi cians shoul d reeva luate the treat ment regim en in patie nts with HBA1C value s consi stent ly > 8%. <5.7% Naila l 5.7 - 6.4% Incre ased risk for diabe luciano >=6.5 % Diagn ostic of diabe luciano <7.0% Goal of thera py >8.0% Actio n sugge sted Not Available [facility] (Lab) [address], [place], [address], 01/22/2025 12:52:18 01/22/20 25 01/21/2025 RPR SCREE N, REFLE X TITER /CONF IRMAT ION RPR qualitative Nonrea ctive nonrea ctive Not Available [facility] (Lab) [address], [place], [address], 01/22/2025 12:52:18 01/01/20 25 12/31/2024 US, obste tric, nucha l trans lucen cy No observ ation record ed. [email or web address] [place] [address], [place], [address], 12/31/2024 17:38:28 01/01/20 25 12/31/2024 US, obste tric, nucha l trans lucen cy No observ ation record ed. [email or web address] [address], [place], [address], 01/01/2025 17:47:05 01/22/20 25 01/21/2025 US, obste tric, limit ed No observ ation record ed. [email or web address] [place] [address], [place], [address], 01/21/2025 17:31:40 01/22/20 25 01/21/2025 US, obste tric, limit ed No observ ation record ed. FRANCI [address], [place], [address], 01/22/2025 14:22:21 Result Notes None recorded. Problems Name Problem SNOMED Code Status Onset Date Resolution Date Notes Provider Name and Address Organization Details Recorded Time Delivery finding Completed 201807/15/2021 labor w/ delivery , fetus 1;Record ed Elsewher e: No Locat ion: [facility] S ource: EHR Candle Pourer mauro: N Practi ce ID: 0001 Jacques lable Time: 09:00:00 AM Lois valencia [place] - [facility] 2 10:57:30 Uses combined oral contrace ption [id number] Completed 201807/15/2021 Encounte r for initial prescrip tion of contrace ptive pills;Pr actice ID: [id number] Lois Andre [facility] 2 10:57:28 Clinical finding Completed 201807/15/2021 Encounte r for surveill ance of injectab le contrace ptive;Re corded Elsewher e: No Locat ion: [facility] S ource: EHR Candle Pourer mauro: N Practi ce ID: 0001 Jacques lable Time: 09:30:00 AM Lois Andre [facility] 2 10:57:27 Pregnanc y 70315215 Active 2024 ESTELLE Steele [facility], [facility] 5 16:55:31 Abnormal ity of organs AND/OR soft tissues of pelvis affectin g pregnanc y 8439512 Active 2024 Prior pregnanc y, resulted in 21 week loss MFM consult schedule d HX of cerclage in last pregnanc y MICHELLE CANDELARIO MD [address], [place], [address], [facility] 5 17:08:11 Problem Notes None recorded. Medical Equipment None Reported. Allergies No known drug allergies Medications Name Sig Start Date Stop Date Status Note LastModified by Organization Details LastModified Time metronida zole 500 mg tablet TAKE 1 TABLET BY MOUTH TWICE DAILY FOR 7 DAYS active Not Available Not Available No t Available ondansetr on 8 mg disintegr ating tablet DISSOLVE 1 TABLET ON THE TONGUE TWICE DAILY active Not Available Not Available No t Available cephalexi n 500 mg capsule TAKE 1 CAPSULE BY MOUTH EVERY 8 HOURS 12/31 completed Not Available Not Available Not Available medroxypr ogesteron e 150 mg/mL intramusc ular suspensio n inject 1 millilit er by intramus cular route every 3 months 12/31 completed Prescrib ed Elsewher e: No Locat ion: [facility] Yany odkatina By: alma rosa Candice barry DateTime : 06/27/20 05:16:55 PM Not Available Not Available Not Available medroxypr ogesteron e 150 mg/mL intramusc ular syringe ADMINIST ER 1 ML IN THE MUSCLE EVERY 3 MONTHS 12/31 completed Not Available Not Available Not Available active Not Available Not Avai lable Not Available Vitals Date Recorded Body height Body mass index (BMI) Body mass index (BMI) [Percentile] Per age and sex Body weight Systolic And Diastolic Provider Name and Address Organization Details Last Updated DateTime 07/15/2021 158.75 cm 22.9 kg/m2 62 % 56848.2 3 g 122/78 mm[Hg] [facility] 11:13:12 Date Recorded Body height Body mass index (BMI) Body weight Systolic And Diastolic Provider Name and Address Organization Details Last Updated DateTime 12/31/2024 158.75 cm 22.5 kg/m2 35146.05 g 124/81 mm[Hg] [facility] 12/31/2024 14:50:04 Date Recorded Body height Body mass index (BMI) Body weight Systolic And Diastolic Provider Name and Address Organization Details Last Updated DateTime 01/29/2025 158.75 cm 21.8 kg/m2 60507.68 g 107/69 mm[Hg] [facility] 01/29/2025 16:55:01 Social History Question Answer Notes LastModified by Organizat ion Details LastModified Time Tobacco Smoking Status Never Smoker [facility] 07/15/2021 11:05:04 Do You Have An Advance Directive? No [email or web address] Information n ot available 12/31/2024 How Many Years Have You Consumed Alcohol? 7 Information not available 12/31/2024 Are You Blind Or Do You Have Difficulty Seeing? No Information n ot available 07/15/2021 What Is Your Level Of Caffeine Consumption? None [email or web address] Information not available 12/31/2024 In The 14 Days Before Symptom Onset, Have You Had Close Contact With A Laboratory-confirm ed COVID-19 While That Case Was Ill? No [email or web address] Information n ot available 12/31/2024 In The 14 Days Before Symptom Onset, Have You Had Close Contact With A Person Who Is Under Investigation For COVID-19 While That Person Was Ill? No Information not available 12/31/2024 Have You Been To An Area Known To Be High Risk For COVID-19? No [email or web address] Information not available 12/31/2024 Are You Deaf Or Do You Have Serious Difficulty Hearing? No Information not available 07/15/2021 What Type Of Diet Are You Following? REGULAR Information n ot available 07/15/2021 What Is The Highest Grade Or Level Of School You Have Completed Or The Highest Degree You Have Received? [id number] [email or web address] Information not available 12/31/2024 Are There Any Guns Present In Your Home? No [email or web address] Information not available 12/31/2024 Do You Use Protection During Sex? No [email or web address] Information not available 12/31/2024 Do You Use Your Seat Belt Or Car Seat Routinely? Yes Information not available 07/15/2021 Do You Have Smoke And Carbon Monoxide Detectors In Your Home? Yes Information not available 07/15/2021 At What Age Did You Start Smoking Tobacco? 14 [email or web address] Information not available 12/31/2024 How Much Tobacco Do You Smoke? 1 PPD [email or web address] Information not available 12/31/2024 Do You Use Sunscreen Routinely? No [email or web address] Information not available 12/31/2024 How Many Years Have You Smoked Tobacco? 10 [email or web address] Information not available 12/31/2024 Have You Used IV Drugs? No Information not available 12/31/2024 Sex: Unknown Functional Status Question Answer Note LastModified by Organizat ion Details LastModified Time Do you use any illicit or recreational drugs? No Information not available 07/15/2021 What is your level of alcohol consumption? None Information not available 07/15/2021 Are you able to walk? [email or web address] Information not available 07/15/2021 What is your occupation? N/A [email or web address] Information not available 12/31/2024 What is your exercise level? None [email or web address] Information not available 12/31/2024 Mental Status Question Answer Note LastModified by Organization D etails LastModified Time Do you feel stressed (tense, restless, nervous, or anxious, or unable to sleep at night)? [id number] [email or web address] Information not available 12/31/2024 Family History Relationship Description Onset Age of this Age Resolved Age Notes LastModified by Organization Details LastModified Time Maternal Grandmother Asthma Not available 2021 11:04:26 Maternal Grandmother Diabetes mellitus Not available 2021 11:04:34 Sister Asthma Not available 12/2021 11:04:26 Unspecified Relation Malignant neoplasm of bone matern al cousin [email or web address] Not available 01/29/2025 16:32:20 Medical History Condition Response Depression/ depression Y Gynecological History Statement/Question Response Date of LMP 10/23/2024 On BCP's at Conception? N N Was last menstrual period normal Y STIs/STDs N HPV Vaccine N Current Control Method None Age at First Child 18 Are cycles usually normal Y Date of Last Colonoscopy Sexually Active? Y Menses Monthly Y Date of DEXA bone scan Age of first menstrual cycle 11 Date of Last Pap Smear Sexual Problems? N Desired Control Method Hormonal In jection LMP Definite N Obstetrics History GPAL:G 5 P 1 0 3 1 Type Value Full Term 1 Spontaneous 3 Living 1 Total 5 Past Encounters Encounter ID Performer Location Encounter Start Date Encounter Closed Date Diagnosis/Indication Diagnosis SNOMED-CT Code Diagnosis ICD10 Code Diagnosis Note [id number] ROS [facility] [address] [address] 07/15/2021 10:40:52 07/15/2021 12:12:11 Gynecologic examination 76787071 Z01.419 Take Calcium with Vitamin D 1200mg [...] cessation encouraged . Contracept ion care management 813881102 Z30.9 On menses today & would like [...] be administer ed today.Unde rstanding verbalized . [id number] ROS [facility] [address] [address] 07/15/2021 16:52:32 07/16/2021 11:13:58 Contraception care management 750338334 Z30.9 On menses today & would like [...] be administer ed today.Unde rstanding verbalized . [id number] MICHELLE CANDELARIO MD [place] [address],[place] [address] 12/31/2024 13:45:33 12/31/2024 14:51:18 screening 306437647 Z36.82 Z3A.11 [id number] MICHELLE CANDELARIO MD [place] [address],[place] [address] 12/31/2024 13:45:52 12/31/2024 15:20:40 Nausea and vomiting 16420035 R11.2 test positive 589558457 Z32.01 1. Exam today within normal limits.2. Ultrasound today confirms GA and viability. EDC . GC/Clamydi a testing and pap smear done: will f/u as indicated. 4. ACOG guidelines and plan of care for reviewed with patient. All questions answered.5 . Return to office at 12 weeks for new OB visit6. Will need new OB labs at next visit.7. Genetic screening: desires. screening 2437 44951 Z36.0 Genetic in vestigation procedure 99231249 Z31.430 Cervical incompetence 17 378803 O34.30 - hx of 21 week due to cervical insufficie ncy in G1 - discussed risk of recurrence in this - recommend MFM consultati on for further evaluation and management [id number] MICHELLE CANDELARIO MD [place] [address],[place] [address] 01/21/2025 15:23:38 01/21/2025 16:26:38 Complication occurring during 433320842 O99.891 Z3A.14 [id number] MICHELLE CANDELARIO MD [place] [address],[place] [address] 01/29/2025 16:32:18 01/31/2025 01:59:08 Abnormality of organs AND/OR soft tissues of pelvis affecting 7704599 O34.30 Prior , resulted in 21 week lossMFM consult scheduledH X of cerclage in last Gestation period, 16 weeks [id number] - continue [facility] Concerns Section Related Observation LastModified by Organization Detai ls LastModified Time None Recorded Concern Status LastModified by Organization Details LastModified Time None Recorded Advance Directives Directive N: Payers Insurance Date Sequence Insurance Name Policy Number Policy Monzon Covered Member ID Monzon Member ID Guarantor Name 01/29/2025 1 [place] Betty Page [id number] Betty Page 01/29/2025 1 [facility] (MEDICAID HMO) [id number] Betty Page [id number] Betty Page 01/29/2025 1 [facility] - DOS ON OR AFTER 21 (MEDICAID REPLACEMENT - HMO) Betty Page [id number] Betty Page Notes Date Note Type Note Provider Name and Address Organization Details Recorded Time 2 text/html Annual GYNReported by PatientHistoryFor history, patient reportsno gynecologic complaints.Genitourina ry symptomsFor menstrual cycle, patient reportsnormal menses. For urinary symptoms, patient reportsno hematuriaandno incontinence. For vulva, patient reportsno genital lesion. For vagina, patient reportsnormal vaginal discharge.Breast symptomsFor breast, patient reportsno breast pain,no breast lump, andno nipple discharge.Contraceptio nFor current contraception, patient reportscondoms.Endocri ne symptomsFor sexual complaints, patient reportsno sexual complaints,no pain during intercourse, andnormal libido. For menopausal symptoms, patient reportsno menopausal symptomsandnormal vaginal lubrication.Psychologi rc symptomsFor psychological symptoms, patient reportsno depression,no anxiety, andno pmdd.Preventative measuresFor preventive measures, patient reportsencourage self breast examination,encourage regular exercise,encourage no tobacco use, andencourage regular mammograms starting age 40. Augustina Martinez, MAGALIS- [address], [place], [address], [place] [facility] 07/16/2021 11:05:25 5 text/html Presents to the office today to confirm . Patient denies any problems up to this point with her . Patient denies cramping or vaginal bleeding. Mild nausea. G1: 21 week due to cervical insufficiency Patient is in a relationship with Nabor. Lives with partner and dogs. Reports daily smoking, was drinking shortly after finding out about but has stopped. Discussed cessation MICHELLE CANDELARIO MD [address], [place], [address], [facility] 12/31/2024 15:19:28 5 text/html Generic HPI TemplateReported by Patient MICHELLE CANDELARIO MD [address], [place], [address], [facility] 01/30/2025 17:08:52 OBGyn Episode Ob Episode Information Episode Created Date Number of Fetuses Patient Bloodtype Patient rh Status Prepregnancy Weight lbs Domestic Partner Domestic Partner Phone Father Name Drop Forge Hand Status 07/15/19 22 1 CLOSED Fetus Data First Name Last Name Admitted to NICU Weight (g) Sex Living Outcome Pediatric Complications Fetus ID Race Codes Race Delivery Type M Demise [id number] Vaginal Delivery Stanley Calculation Initial Stanley Date [...] Complications Tubal Sterilization Discharge Date Comments 9 21 Discharge Information Feeding Method Contraceptive Method Maternal HG B and HCT Levels Ob Episode Information Episode Created Date Number of Fetuses Patient Bloodtype Patient rh Status Prepregnancy Weight lbs Domestic Partner Domestic Partner Phone Father Name Drop Forge Hand Status 01/01/20 25 1 CLOSED Fetus Data First Name Last Name Admitted to NICU Weight (g) Sex Living Outcome Pediatric Complications Fetus ID Race Codes Race Delivery Type , Spontane ous [id number] Stanley Calculation Initial Stanley Date Initial Exam [...] Complications Tubal Sterilization Discharge Date Comments 9 stillbor n Discharge Information Feeding Method Contraceptive Method Maternal HG B and HCT Levels Ob Episode Information Episode Created Date Number of Fetuses Patient Bloodtype Patient rh Status Prepregnancy Weight lbs Domestic Partner Domestic Partner Phone Father Name Drop [place]ge Hand Status 01/01/20 25 1 CLOSED Fetus Data First Name Last Name Admitted to NICU Weight (g) Sex Living Outcome Pediatric Complications Fetus ID Race Codes Race Delivery Type , Spontane ous [id number] Stanley Calculation Initial Stanley Date Initial Exam [...] Post Complications Tubal Sterilization Discharge Date Comments 1 Discharge Information Feeding Method Contraceptive Method Maternal HG B and HCT Levels Ob Episode Information Episode Created Date Number of Fetuses Patient Bloodtype Patient rh Status Prepregnancy Weight lbs Domestic Partner Domestic Partner Phone Father Name Drop Forge Hand Status 01/01/20 1 CLOSED Fetus Data First Name Last Name Admitted to NICU Weight (g) Sex Living Outcome Pediatric Complications Fetus ID Race Codes Race Delivery Type , Spontane ous [id number] Stanley Calculation Initial Stanley Date Initial Exam [...] Post Complications Tubal Sterilization Discharge Date Comments 3 Discharge Information Feeding Method Contraceptive Method Maternal HG B and HCT Levels Ob Episode Information Episode Created Date Number of Fetuses Patient Bloodtype Patient rh Status Prepregnancy Weight lbs Domestic Partner Domestic Partner Phone Father Name Drop Forge Hand Status 01/30/20 25 1 OPEN Fetus Data First Name Last Name Admitted to NICU Weight (g) Sex Living Outcome Pediatric Complications Fetus ID Race Codes Race Delivery Type [id number] Problems Problem Notes Problem Name Start Date End Date Resolution Snomed Code Not e Abnormality of organs AND/OR soft tissues of pelvis affecting 01/30/2025 [id number] Prior , resulted in 21 week lossMFM consult scheduledHX of cerclage in last Stanley Calculation Initial Stanley Date Initial Exam Date Initial Exam Provider Initial Ultrasound Date Last Menstrual Period Date Ultra Sound Weeks Gestation 07/20/2025 01/29/2025 01/21/2025 10/13/2024 14 Eighteen To Twenty Week Stanley Update Ultra Sound Date Fundal Height At Umbil Quickening Date Ultra Sound Latest Weeks Gestation Final Stanley Confirmed By Final Stanley Confirmed Date Final Stanley Date Ultra Sound Latest Days Gestation 0 0 Pre-priti Flowsheet Flowsheet Date 01/29/2025 Saavedra Score Blood Edema Fundus Height Fundus Units Glucose Ketones Leukocytes Nitrite Labor Signs Protein Cervic Dilation Cervic Effacement Cervic Station neg none Type Weight in lbs Pre/Post Dialysis Refused Weight [id number] BP Diastolic BP Location Tested BP Systolic BP Type 69 L arm 107 sitting Fetus Heart Rate Present A 140 Fetus Movement A Yes Comments Starting to feel flutters. S ome pelvic pain. No bleeding. Has had decreased appetite and food aversions, hasn't been vomiting. Discussed normal weight gain in , patient to call if nausea worsens. MFM appointment scheduled. Hx of 21 week loss due to cervical insufficiency, had US indicated cerclage in last . RTC 4 weeks. Menstrual History Last Menstrual Date Menses Monthly On Bcp Conception Prior Menses Frequency Hcg Plus Date Menarche Onset Age 0410/13/2024 true Delivery Information Delivery Date Delivery Type Labor Anesthesia Weeks Gestation Incision Type Labor Labor Length Hrs Delivered By Post Complications Tubal Sterilization Discharge Date Comments Discharge Information Feeding Method Contraceptive Method Maternal HG B and HCT Levels
--- OUTSIDE RECORDS SUMMARY | 2025-02-01 00:57 | XMS_ITS | Clinical Summary ---
Author Organization [facility] Address [address] [place] [address] Care Team Providers Care Contract Admin Name Role Phone Unavailable Primary Care Provider Unavailabl e Source Comments [facility],non-owned Affiliates and Associated Physician Practices is amultiple site organization consisting of ambulatory clinics and hospital sitesin [place], [place], [place] and [place]. This disclosure is being madepursuant to the Care Everywhere program and may not contain all information available regarding this patient. Last updated 18.[facility] Encounters Date Type Department Care Team Description 12/19/2024 Telephone [facility] Medical Group - FORESTRY EXTENSION SPECIALIST [address] [place] [phone] Marcy Ulloa MD Appointment (Missed period, LMP 10/13/2024) from Last 3 Months Social History Tobacco Use Types Packs/Day Years Used Date Smoking Tobacco: Never Assessed Estimated Date of Delivery Comme nts Yes 07/20/2025 Based on last me nstrual period of 10/13/2024 Sex and Gender Information Value Date Recorded Sex Assigned at Not on file Legal Sex Female 12:31 PM CDT Gender Identity Not on file Sexual Orientation Not on file Plan of Treatment Upcoming Encounters Date Type Department Care Team (Late st Contact Info) Description 02/05/2025 10:30 AM CDT Hospital Encounter [facility] [address] [place] [address] 02/05/2025 11:15 AM CDT Hospital Encounter [facility] [address] [place] [address] Health Maintenance Due Date Last Done Comments HIV SCREENING 2016 HPV VACCINE (1 - 3-dose series) 2016 CHLAMYDIA/GONORRHEA SCREENING 2017 MENINGOCOCCAL (Group B) VACCINE SHARED DECISION-MAKING (1 of 2 - Standard) 2017 HEPATITIS C SCREENING 04/22/2019 DTAP/TDAP/TD VACCINES (1 - Tdap) 2020 HEPATITIS B VACCINE (1 of 3 - 19+ 3-dose series) 2020 PAP SMEAR 2022 COVID-19 VACCINE (1 - season) 2024 DEPRESSION SCREENING 07/10/2024 INFLUENZA VACCINE (#1) 2025 6, 08/02/2013, 08/07/2012, Additional history exists OB-TDAP CURRENT 04/20/2025 08/07/2012 Respiratory Syncytial Virus (RSV) Vaccine Pt: or over 60 yrs (1 - Risk 1-dose series) 05/25/2025 ZOSTER VACCINE (1 of 2) 2051 HIB VACCINE Aged Out No longer eligi ble based on patient's age to complete this topic MENINGOCOCCAL GROUPS A/C/Y/W VACCINE Aged Out No longer eligible based on patient's age to complete this topic PNEUMOCOCCAL VACCINE Aged Out No long er eligible based on patient's age to complete this topic Insurance [facility]
[2025-02-01 00:58] VITALS: BP 98/56; PULSE 124; RESP 18; TEMP 36.7; O2SAT 99
[2025-02-01 02:06] VITALS: BP 100/57; PULSE 108; RESP 19; O2SAT 99
[2025-02-01 02:43] LABS: Hematocrit 34.0 % (37.0-47.0); Hemoglobin 11.4 g/dL (12.0-15.0); Immature Granulocyte Percent A 0.4 % (0-0.5); Lymphocytes Absolute Auto 1.12 K/mm3 (0.9-3.2); Mean Corpuscular HGB Conc 33.5 g/dl (32-36); Mean Corpuscular Hemoglobin 27.9 pg (26-34); Mean Corpuscular Volume 83.1 fl (80-100); Nucleated Red Blood Cells Absolute Auto 0.000 K/mm3 (0.0-0.012); Nucleated Red Blood Cells Perc 0.0 % (0.0-0.2); Platelet Count Result 189 k/mm3 (150-375); Red Blood Count 4.09 M/mm3 (4.2-5.4); White Blood Count 10.2 K/mm3 (4.5-10.0)
[2025-02-01 02:54] LABS: Alanine Aminotransferase 18 U/L (6-35); Albumin Level 4.1 g/dL (3.5-5.1); Alkaline Phosphatase 43 U/L (38-126); Anion Gap 8 mmol/L (4-12); Aspartate Amino Transferase 32 U/L (14-36); Bilirubin,Total 0.2 mg/dL (0.2-1.3); Blood Urea Nitrogen 9 mg/dL (7-17); Calcium 9.4 mg/dL (8.4-10.2); Carbon Dioxide 20 mmol/L (22-30); Chloride 105 mmol/L (98-107); Estimated CRCL calculation 73 ml/min; Estimated Glomerular Filt Rate > 60; Glucose 86 mg/dL (65-110); Potassium 3.3 mmol/L (3.4-5.0); Sodium 133 mmol/L (137-145); Total Protein 7.2 g/dL (6.3-8.2)
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
[2025-02-01] MEDS: POTASSIUM BICARBONATE 25 MEQ TABEF PO (03:23)
[2025-02-01] MEDS: ACETAMINOPHEN 325 MG TABLET 650 MG PO (03:24)
[2025-02-01] MEDS: SODIUM CHLORIDE 0.9% IV 1,000 ML 999 ML IV CONT (03:25)
[2025-02-01 03:31] LABS: BEDSIDEPREGUCG Positive (Negative)
--- OUTSIDE RECORDS SUMMARY | 2025-02-01 03:37 | XMS_ITS | Clinical Summary ---
Author Organization [facility] Address [address] [place] [address] Care Team Providers Care Dairy Cattle Farm Manager Name Role Phone Unavailable Primary Care Provider Unavailabl e Source Comments [facility],non-owned Affiliates and Associated Physician Practices is amultiple site organization consisting of ambulatory clinics and hospital sitesin [place], [place], [place] and [place]. This disclosure is being madepursuant to the Care Everywhere program and may not contain all information available regarding this patient. Last updated 18.[facility] Encounters Date Type Department Care Team Description 12/19/2024 Telephone [facility] Medical Group - HARP ACTION ASSEMBLER [address] [place] [phone] Marcy Ulloa MD Appointment (Missed period, [...] Description 02/05/2025 10:30 AM CDT [facility] [address] [place] [address] 02/05/2025 11:15 AM CDT Hospital Encounter [facility] [address] [place] [address] Health Maintenance Due Date Last Done Comments [...] patient's age to complete this topic Insurance [facility]
[2025-02-01 04:08] VITALS: BP 109/66; PULSE 106; RESP 16; O2SAT 100
[2025-02-01 04:15] VITALS: BP 113/68; PULSE 108; RESP 21; O2SAT 100
[2025-02-01 04:16] LABS: Add Urine Microscopic? YES; Appearance Urine Turbid (Clear); Glucose Urine UA Negative (Negative); Leukocyte Esterase Ur 1+ LEU/UL (Negative); Need Manual Microscopic Reviewed; Nitrate Urine Negative (Negative); Specific Grav Ur 1.027 (1.001-1.035)
[2025-02-01 04:23] VITALS: O2SAT 100
[2025-02-01] MEDS: CEPHALEXIN 500 MG CAPSULE PO (05:26)
== END 2025-02-01 05:34 | disposition home or self-care (01) ==
PROVIDERS: Physician Assistant; Emergency Provider Student in an Organized Health Care Education/Training Program
DX: O99.891 Other specified diseases and conditions complicating pregnancy (principal); S00.81XA Abrasion of other part of head, initial encounter; O26.892 Other specified pregnancy related conditions, second trimester; R07.9 Chest pain, unspecified; R10.9 Unspecified abdominal pain; O23.92 Unspecified genitourinary tract infection in pregnancy, second trimester; R82.71 Bacteriuria; O99.012 Anemia complicating pregnancy, second trimester; D64.9 Anemia, unspecified; O99.282 Endocrine, nutritional and metabolic diseases complicating pregnancy, second trimester; E87.6 Hypokalemia; M54.2 Cervicalgia; Y04.2XXA Assault by strike against or bumped into by another person, initial encounter; Z3A.16 16 weeks gestation of pregnancy
CPT/HCPCS: 36415; 71045; 80053; 81001; 81025; 85025; 85461; 86850; 86900; 86901; 87086; 96360; 99284; A9270; J7030

== ENCOUNTER 2025-02-27 11:03 | Emergency (ER) | payer OTHER, SELFPAY ==
--- NOTE | ~2025-02-27 | US_ITS ---
EXAMINATION: US OB limited DATE: 02/27/2025 13:15 INDICATION: Spotting during 19th week TECHNIQUE: Real-time ultrasound of the pelvis was performed. The interpreting radiologist was not present for the study. COMPARISON: None. FINDINGS: There is a single living fetus in vertex presentation. The placenta is posterior and not low-lying. Normal cervical length of 3.4 cm with no funneling. heart rate is 157 beats per minute (bpm). The amniotic fluid index is 10.4 cm, which is normal. (5th%-95%: 9.0-20.7 cm at 19 weeks estimated gestational age). IMPRESSION: 1. Single living fetus in vertex presentation with heart rate of 157 bpm. 2. Normal amniotic fluid index of 10.4 cm. Reviewed, dictated and finalized at location A. IMPRESSION: 1. Single living fetus in vertex presentation with heart rate of 157 bpm . 2. Normal amniotic fluid index of 10.4 cm.
[2025-02-27 11:13] VITALS: BP 109/68; PULSE 90; RESP 18; TEMP 36.9; O2SAT 99
[2025-02-27 11:37] LABS: Add Urine Microscopic? YES; Appearance Urine Turbid (Clear); Glucose Urine UA Negative (Negative); Leukocyte Esterase Ur 3+ LEU/UL (Negative); Need Manual Microscopic Reviewed; Nitrate Urine Negative (Negative); Non Pathogenic Casts 0-2; Specific Grav Ur 1.019 (1.001-1.035)
--- OUTSIDE RECORDS SUMMARY | 2025-02-27 11:47 | XMS_ITS | Clinical Summary ---
Author Organization [facility] [place] Address [address] [place] [address] Care Team Providers Care Wrist Liner Name Role Phone Unavailable Primary Care Provider Unavailabl e Source Comments [facility] [place],non-owned Affiliates and Associated Physician Practices is amultiple site organization consisting of ambulatory clinics and hospital sitesin [place], [place], [place] and [place]. This disclosure is being madepursuant to the Care Everywhere program and may not contain all information available regarding this patient. Last updated [email or web address] Allergies No known active allergies Medications * Be aware that medications may not be up to date on this document. Alwaysverify current medications with the patient. Vit-DSS-Fe Fum-FA ( vitamin with iron) tablet Take 1 (one) tablet by mouth once daily Active nitrofurantoin monohyd macro crystals (Macrobid) 100 MG capsuleIndicati ons:Uncomplicat ed Urinary Tract Infection Reasons: Simple Infection of the Urinary Tract Active Progesterone 200 MG capsuleIndicati ons:History of delivery Direction Change: Place in vagina at bedtime. 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 ecurrent loss, antepartum 02/09/2025 Estimated Date of Delivery Comme nts Yes 07/20/2025 Based on last me nstrual period of 10/13/2024 Encounters Date Type Department Care Team Description 02/18/2025 3:14 PM CDT - 02/18/2025 11:59 PM CDT Hospital Encounter [facility] [address] [place] [phone] Cecilio Covarrubias MD Discharge Disposition: Home or Self Care 02/05/2025 10:50 AM CDT - 02/05/2025 11:59 PM CDT Hospital Encounter [facility] [address] [place] [phone] Padma Diggs MD Discharge Disposition: Home or Self Care 02/05/2025 10:30 AM CDT - 02/05/2025 10:49 AM CDT Hospital Encounter [facility] [address] [place] [phone] Padma Diggs MD Discharge Disposition: Home or Self Care 12/19/2024 Telephone [facility] - [employer] [address] [place] [phone] Marcy Ulloa MD Appointment (Missed period, LMP 10/13/2024) from Last 3 Months Family History Relation Name Status Comments Mother Alive Social History Tobacco Use Types Packs/Day Years Used Date Smoking Tobacco: Some Days Cigarettes Tobacco Cessation:Ready to Q uit: Not Asked; Counseling Given: Not Answered Alcohol Use Standard Drinks/Week Comments Not Currently 0 (1 standard drink = 0.6 oz pur e alcohol) Estimated Date of Delivery Comme nts Yes 07/20/2025 Based on last me nstrual period of 10/13/2024 Sex and Gender Information Value Date Recorded Sex Assigned at Not on file Legal Sex Female 12:31 PM CDT Gender Identity Not on file Sexual Orientation Not on file Last Filed Vital Signs Vital Sign Reading Time Taken Comments Blood Pressure 104/60 02/05/2025 11:25 AM CDT Pulse 82 02/05/2025 11:25 AM CDT Temperature - - Respiratory Rate - - Oxygen Saturation - - Inhaled Oxygen Concentration - - Weight 56.7 kg (125 lb) 02/05/2025 11:25 AM CDT Height 154.9 cm (5' 1) 02/05/2025 11:25 AM CDT Body Mass Index 23.62 02/05/2025 11:25 AM CDT Plan of Treatment Upcoming Encounters Date Type Department Care Team (Late st Contact Info) Description 03/05/2025 9:45 AM CDT Hospital Encounter [facility] [address] [place] [phone] 03/21/2025 1:45 PM CDT Appointment [facility] [address] [place] [phone] 03/31/2025 1:45 PM CDT Appointment [facility] [address] [place] [phone] Health Maintenance Due Date Last Done Comments HIV SCREENING 2016 HPV VACCINE (1 - 3-dose series) 2016 CHLAMYDIA/GONORRHEA SCREENING 2017 MENINGOCOCCAL (Group B) VACCINE SHARED DECISION-MAKING (1 of 2 - Standard) 2017 HEPATITIS C SCREENING 04/22/2019 DTAP/TDAP/TD VACCINES (1 - Tdap) 2020 HEPATITIS B VACCINE (1 of 3 - 19+ 3-dose series) 2020 PNEUMOCOCCAL VACCINE (1 of 2 - PCV) 2020 PAP SMEAR 2022 COVID-19 VACCINE ( season) 2024 DEPRESSION SCREENING 07/10/2024 INFLUENZA VACCINE [...] on patient's age to complete this topic Procedures Procedure Name Priority Date/Time Associated Diagnosis Comments SONOGRAM - COMPLETE Routine 02/18/2025 3:15 PM CDT History of anemia Prior poor obstetrical history in second trimester, antepartum: mid trimester loss Tobacco use complicating , unspecified trimester (HCC) 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 Linked Results Indication ======== History of PTL/PTD in previous , currently History ====== OB History 4. Para 1 [id number] 1. miscarriage (20 - 23 weeks) 2018. Gest. age 21 w + 0 d. Sex of child: male. Details: 2. miscarriage. Details: 2022 Lab Tests Test Date Result Not Performed Maternal Assessment = Physical Exam Height 157 cm, 5 ft 2 in. Initial weight 57 kg, 125 lb. Initial BMI 22.86 kg/m Method ====== Transabdominal and transvaginal ultrasound. View: Good view ========= Lombardo . Number of fetuses: 1 Dating ====== Date Details Gest. age DOMINGA LMP 10/13/2024 18 w + 2 d 07/20/2025 Assigned dating based on the LMP, selected on 02/05/2025 18 w + 2 d 07/20/2025 General Evaluation Cardiac activity present. FHR 161 bpm. Presentation: breech Placenta: Placental site: posterior. No previa seen Umbilical cord: Cord vessels: 3 vessel cord. Insertion site: normal insertion - previously documented Amniotic fluid: Amount of AF: normal. MVP 4.7 cm Anatomy The following structures appear normal: Abdomen Stomach. Kidneys. Bladder. The following structures were documented previously: Heart / Thorax 4-chamber view. sex: male. Maternal Structures Cervix reassuring Approach - Transvaginal: Cervical length 3.80 cm Impression ========= Single, live, intrauterine at 18w 2d The amniotic fluid volume is normal. Transvaginal cervical length is reassuring. Follow-up ======== Follow up U/S in 2 weeks for growth, detailed anatomic survey & cervical length screening Coding ====== Diagnoses O09.212: Supervision of with history of pre-term labor Procedures 02744: US Uterus Limited 85244: US Preg Uterus Transvaginal [facility] PACS Anatomical Region Laterality Modality Other 02/18/2025 3:15 PM CDT [facility] Rancho Blount MD [facility] ORDERABLES Edited Result - Final from Last 3 Months Insurance [facility]
[2025-02-27 11:53] LABS: Hematocrit 31.0 % (37.0-47.0); Hemoglobin 10.1 g/dL (12.0-15.0); Immature Granulocyte Percent A 0.7 % (0-0.5); Lymphocytes Absolute Auto 0.78 K/mm3 (0.9-3.2); Mean Corpuscular HGB Conc 32.6 g/dl (32-36); Mean Corpuscular Hemoglobin 27.7 pg (26-34); Mean Corpuscular Volume 84.9 fl (80-100); Nucleated Red Blood Cells Absolute Auto 0.000 K/mm3 (0.0-0.012); Nucleated Red Blood Cells Perc 0.0 % (0.0-0.2); Platelet Count Result 152 k/mm3 (150-375); Red Blood Count 3.65 M/mm3 (4.2-5.4); White Blood Count 7.0 K/mm3 (4.5-10.0)
[2025-02-27 12:06] LABS: INR 1.1; Partial Thromboplastin Time 26.7 Seconds (22.3-36.8); Prothrombin Time 13.9 Seconds (11.1-14.7)
--- OUTSIDE RECORDS SUMMARY | 2025-02-27 12:09 | XMS_ITS | Clinical Summary ---
Author Organization [facility] [employer] Address [address] [place] [address] Care Team Providers Care Pressroom Worker Name Role Phone Unavailable Primary Care Provider Unavailabl e Source Comments [facility] [employer],non-owned Affiliates and Associated Physician Practices is amultiple site organization consisting of ambulatory clinics and hospital sitesin [place], [place], [place] and [place]. This disclosure is being madepursuant to the Care Everywhere program and may not contain all information available regarding this patient. Last updated [email or web address] Allergies No known active allergies Medications * [...] - 02/18/2025 11:59 PM CDT Hospital Encounter [facility] [address] [place] [phone] Cecilio Covarrubias MD Discharge Disposition: Home or Self Care 02/05/2025 10:50 AM CDT - 02/05/2025 11:59 PM CDT Hospital Encounter [facility] [address] [place] [phone] Padma Diggs MD Discharge Disposition: Home or Self Care 02/05/2025 10:30 AM CDT - 02/05/2025 10:49 AM CDT Hospital Encounter [facility] [address] [place] [phone] Padma Diggs MD Discharge Disposition: Home or Self Care 12/19/2024 Telephone [facility] - [employer]CE [employer] [address] [place] [phone] Marcy Ulloa MD Appointment (Missed period, [...] Description 03/05/2025 9:45 AM CDT Hospital Encounter [facility] [address] [place] [phone] 03/21/2025 1:45 PM CDT Appointment [facility] [address] [place] [phone] 03/31/2025 1:45 PM CDT Appointment [facility] [address] [place] [phone] Health Maintenance Due Date Last Done Comments [...] 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 Linked Results Indication ======== History of PTL/PTD in previous , currently History ====== OB History 4. Para 1 [id number] 1. miscarriage (20 - 23 weeks) 2018. [...] of with history of pre-term labor Procedures 15264: US Uterus Limited 82353: US Preg Uterus Transvaginal [facility] [employer] PACS Anatomical Region Laterality Modality Other 02/18/2025 3:15 PM CDT [facility] Rancho Blount MD [facility] ORDERABLES Edited Result - Final from Last 3 Months Insurance [facility]
[2025-02-27 12:22] LABS: Alanine Aminotransferase 13 U/L (6-35); Albumin Level 3.6 g/dL (3.5-5.1); Alkaline Phosphatase 42 U/L (38-126); Anion Gap 7 mmol/L (4-12); Aspartate Amino Transferase 23 U/L (14-36); Bilirubin,Total 0.3 mg/dL (0.2-1.3); Blood Urea Nitrogen 6 mg/dL (7-17); Calcium 8.9 mg/dL (8.4-10.2); Carbon Dioxide 20 mmol/L (22-30); Chloride 105 mmol/L (98-107); Estimated CRCL calculation 103 ml/min; Estimated Glomerular Filt Rate > 60; Glucose 78 mg/dL (65-110); Potassium 3.6 mmol/L (3.4-5.0); Sodium 132 mmol/L (137-145); Total Protein 6.5 g/dL (6.3-8.2)
[2025-02-27] MEDS: CEPHALEXIN 500 MG CAPSULE PO (12:27)
[2025-02-27 12:28] LABS: Influenza A QL RT-PCR Negative (Negative); Influenza B QL RT-PCR Negative (Negative); RSV RNA, RT-PCR Negative (Negative); SARS-CoV-2 RNA PCR Negative (Negative)
--- NOTE | 2025-02-27 12:33 | ED_ITS ---
HPI - General Chief complaint: Vaginal Bleeding Stated complaint: vaginal bleeding Time Seen by Provider: 02/27/25 11:10 Source: patient Mode of arrival: ambulatory Limitations: no limitations History of Present Illness HPI Narrative: Patient is a 24-year-old female who presents the ED with report of vaginal spotting and upper respiratory symptoms. Patient reports she has upper respiratory symptoms for the last several days, including cough, congestion, rhinorrhea, sore throat. Her significant other has had similar symptoms as well. She also reports having intermittent light pink vaginal spotting since last weekend. She is currently 19 weeks gestation[address] . [place] [place] [facility] [place] Denies heavy vaginal bleeding. Denies significant abdominal pain. Denies other issues with this thus far. Denies fevers. Related Data Home Medications ?Medication ?Instructions ?Recorded ?Confirmed ?Last Taken ?Type ferrous sulfate 325 mg (65 mg 325 mg PO DAILY 11/09/21 Unknown History iron) tablet (Iron (ferrous sulfate)) Allergies Allergy/AdvReac Type Severity Reaction Status Date / Time No Known Allergies Allergy Verified 02/27/25 11:17 Review of Systems 2 Review of Systems: All systems reviewed & are unremarkable except as noted in HPI. All systems reviewed & are unremarkable except as noted in HPI and below PMFSH Past Medical History Medical History (Updated 02/27/25 @ 13:37 by Catie Carmichael PA-C) ADHD Social History Social History Smoking status: Unknown if ever smoked Gender identity (if verbalized by the patient): Female Exam 2 Narrative: GENERAL: Well appearing, well-nourished, non-toxic, in no acute distress. HEAD: Normocephalic, atraumatic. RESPIRATORY: Airway patent, respirations nonlabored. Clear to auscultation bilaterally, no rales, rhonchi, wheezing. No significant focal lung sounds. Frequent coughing on exam CARDIOVASCULAR: Regular rate and rhythm without murmurs, rubs, or gallops. ABDOMINAL: Soft, uterus gravid just below umbilicus, nontender, nondistended. Normoactive BS. MUSCULOSKELETAL: Moves all extremities. No gross deformities. SKIN: Warm, dry, normal color. NEURO: A&O X3. Speech clear. No ataxic movements. PSYCHIATRIC: Appropriate mood and affect. Normal interaction. Course Vital Signs Vital signs: Vital Signs Temperature 98.4 F 02/27/25 11:13 Pulse Rate 90 02/27/25 11:13 Respiratory Rate 18 02/27/25 11:13 Blood Pressure 109/68 02/27/25 11:13 Pulse Oximetry 99 02/27/25 11:13 Oxygen Delivery Room Air 02/27/25 11:13 Temperature 98.4 F 02/27/25 11:13 Pulse Rate 93 02/27/25 15:24 Respiratory Rate 15 02/27/25 15:24 Blood Pressure 106/63 02/27/25 15:24 Pulse Oximetry 99 02/27/25 15:24 Oxygen Delivery Room Air 02/27/25 11:13 MDM - OB/Uterine Contractions MDM Narrative Medical decision making narrative: Patient presented to ED with upper respiratory symptoms, vaginal spotting, currently 19 weeks gestation. Vital signs stable upon arrival. Patient is afebrile here. In no acute distress. Cbc without leukocytosis. Mild anemia noted at 10.1. Patient reports light pink spotting/discharge, denies significant heavy vaginal bleeding. CMP with bicarb of 20, otherwise stable electrolytes, stable kidney function. Viral swabs are negative. Strep testing negative. UA with signs of infection, 3+ leuk esterase, 21-50 WBC, 4+ urine bacteria. Sent for culture. Will treat. Given dose of Keflex in the ED. Patient's blood type is A positive, no indication for RhoGAM. Ob ultrasound was obtained and reassuring. Live IUP, good heart tones, no other concerning features. Discussed lab and imaging findings with patient. Discussed high likelihood of a viral URI, management of such including meds that are safe in . Discussed diagnosis of UTI. Advised close follow-up with OBGYN for further evaluation. Patient given strict return precautions. She is in agreement with plan. Feels comfortable going home. Discharged in stable condition. Medical Records Attestation: I reviewed the patient's medical records. Lab Data Attestation: I reviewed the patient's lab results. 02/27/25 11:45 02/27/25 11:45 Labs: Lab Results 02/27/25 02/27/25 02/27/25 Range/Units 11:18 11:45 13:36 WBC 7.0 (4.5-10.0) K/mm3 RBC 3.65 L (4.2-5.4) M/mm3 Hgb 10.1 L (12.0-15.0) g/dL Hct 31.0 L (37.0-47.0) % MCV 84.9 (80-100) fl MCH 27.7 (26-34) pg MCHC 32.6 (32-36) g/dl RDW 13.2 (11.5-14.5) % Plt Count 152 (150-375) k/mm3 MPV 11.1 H (7.4-10.4) fl Immature Gran % (Auto) 0.7 H (0-0.5) % Neut % (Auto) 79.1 H (45.5-73.1) % Lymph % (Auto) 11.1 L (18.3-44.2) % [place] % (Auto) 8.1 (2.6-8.5) % Eos % (Auto) 0.7 (0-4.4) % Baso % (Auto) 0.3 (0.2-1.2) % Lymph # (Auto) 0.78 L (0.9-3.2) K/mm3 [place] # (Auto) 0.6 (0.1-0.6) K/mm3 Eos # (Auto) 0.1 (0-0.3) K/mm3 Baso # (Auto) 0.0 (0.0-0.1) K/mm3 Abs Immat Gran (auto) 0.05 H (0.00-0.031) K/mm3 Absolute Neuts (auto) 5.6 (1.3-6.7) K/mm3 Absolute Nucleated RBC 0.000 (0.0-0.012) K/mm3 Nucleated RBC % 0.0 (0.0-0.2) % PT 13.9 (11.1-14.7) Seconds INR 1.1 APTT 26.7 (22.3-36.8) Seconds Sodium 132 L (137-145) mmol/L Potassium 3.6 (3.4-5.0) mmol/L Chloride 105 (98-107) mmol/L Carbon Dioxide 20 L (22-30) mmol/L Anion Gap 7 (4-12) mmol/L BUN 6 L (7-17) mg/dL Creatinine 0.54 L (0.7-1.0) mg/dL Estim Creat Clear Calc 103 ml/min Estimated GFR > 60 (59 - ) Glucose 78 (65-110) mg/dL Calcium 8.9 (8.4-10.2) mg/dL Total Bilirubin 0.3 (0.2-1.3) mg/dL AST 23 (14-36) U/L ALT 13 (6-35) U/L Alkaline Phosphatase 42 (38-126) U/L Total Protein 6.5 (6.3-8.2) g/dL Albumin 3.6 (3.5-5.1) g/dL Beta HCG, Quant 81656.00 mIU/ML Urine Color Yellow (Yellow) Urine Appearance Turbid H (Clear) Urine pH 8.5 (5.0-9.0) Ur Specific [place] 1.019 (1.001-1.035) Urine Protein Trace (Negative) mg/dL Urine Glucose (UA) Negative (Negative) mg/dL Urine Ketones Negative (Negative) mg/dL Ur Blood (Man) Negative (Negative) Urine Nitrate Negative (Negative) Urine Bilirubin Negative (Negative) Urine Urobilinogen 1.0 (<2.0) mg/dL Add Ur Microanalysis Reviewed Leukocyte Esterase Rfl 3+ H (Negative) ELIANE/UL Urine RBC 0-2 (0-2) /hpf Urine WBC 21-50 H (0-3) /hpf Ur Squamous Epith Cells Many H (Few) /hpf Urine Bacteria 4+ H /hpf Urine Casts 0-2 Influenza A (RT-PCR) Negative (Negative) Influenza B (RT-PCR) Negative (Negative) RSV (RT-PCR) Negative (Negative) SARS-CoV-2 RNA (RT-PCR) Negative (Negative) Group A Strep (PCR) Not detected (Negative) Blood Type A Positive Antibody Screen Negative Doses of RhIg Required 0 Imaging Data Attestation: I personally reviewed and interpreted this imaging study as follows: Radiologist's impression: ITS Impressions Obstetrics Ultrasound 02/27/25 14:00 IMPRESSION: 1. Single living fetus in vertex presentation with heart rate of 157 bpm. 2. Normal amniotic fluid index of 10.4 cm. Discharge Plan Discharge Clinical Impression: 19 weeks gestation of , Vaginal spotting Urinary tract infection during Qualifiers: Trimester: second trimester Qualified Code(s): O23.42 - Unspecified infection of urinary tract in , second trimester Upper respiratory infection Qualifiers: URI type: unspecified URI Qualified Code(s): J06.9 - Acute upper respiratory infection, unspecified Patient Disposition: Home Condition: Stable Instructions: Antibiotic Form, Upper Respiratory Infection (ED), Urinary Tract Infection in (ED), at 19 to 22 Weeks (ED) Additional Instructions: Your ultrasound here looked normal. Follow-up with your OBGYN for further evaluation. Your urine showed signs of infection. Take antibiotics as prescribed. You tested negative for COVID, influenza, RSV, strep. You likely have a viral upper respiratory infection that should resolve on its own over the next several days. You may take Tylenol, Delsym, mucinex, Robitussin as needed for cold symptoms. These are safe in . Return to the ED for worsening or severe symptoms, worsening vaginal bleeding, abdominal pain, unable to keep down food or drink, difficulty breathing, or any other symptoms of concern. Patient Language: Armenian Prescriptions: New cephalexin 500 mg capsule 500 mg PO Q6H 7 Days Qty: 28 0RF No Action ferrous sulfate [Iron (ferrous sulfate)] 325 mg (65 mg iron) Tablet 325 mg PO DAILY cephalexin 500 mg capsule 500 mg PO Q8H Qty: 15 0RF cephalexin 500 mg tablet 500 mg PO Q8H 5 Days Qty: 14 0RF Rx Instructions: rec'd first dose in ED acetaminophen 650 mg tablet extended release 650 mg PO Q8H PRN (Reason: pain) Qty: 30 0RF Follow-up/Referrals: Dhaval Dow MD [Physician, MEDICAL PATHOLOGY TEACHER] Referral Note: OBGYN UNKNOWN,DOCTOR [Primary Care Provider] Time of Disposition: 15:13
[2025-02-27 13:03] LABS: Beta HCG Quantitative 16780.00 mIU/ML
[2025-02-27 14:05] LABS: Strep Group A RT-PCR NOT DETECTED (Negative)
[2025-02-27 15:24] VITALS: BP 106/63; PULSE 93; RESP 15; O2SAT 99
== END 2025-02-27 15:26 | disposition home or self-care (01) ==
PROVIDERS: Emergency Provider Physician Assistant
DX: O26.852 Spotting complicating pregnancy, second trimester (principal); O99.512 Diseases of the respiratory system complicating pregnancy, second trimester; J06.9 Acute upper respiratory infection, unspecified; O23.42 Unspecified infection of urinary tract in pregnancy, second trimester; N39.0 Urinary tract infection, site not specified; Z20.822 Contact with and (suspected) exposure to COVID-19; Z3A.19 19 weeks gestation of pregnancy
CPT/HCPCS: 36415; 76815; 80053; 81001; 84702; 85025; 85461; 85610; 85730; 86850; 86900; 86901; 87086; 87637; 87651; 99284; A9270

== ENCOUNTER 2025-05-19 19:59 | Emergency (ER) | payer OTHER, SELFPAY ==
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
--- OUTSIDE RECORDS SUMMARY | 2025-05-19 20:02 | XMS_ITS | Clinical Summary ---
Author Organization [facility] Address [address] [place] [address] Care Team Providers Care Take Out Waiter/Waitress Name Role Phone Unavailable Primary Care Provider Unavailabl e Source Comments [facility],non-owned Affiliates and Associated Physician Practices is amultiple site organization consisting of ambulatory clinics and hospital sitesin [place], [place]. This disclosure is being madepursuant to the Care Everywhere program and may not contain all information available regarding this patient. Last updated 18.[employer] [facility] Allergies No known active allergies Medications * [...] vagina at bedtime. 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 ecurrent loss, antepartum 02/09/2025 Estimated Date of Delivery Comme nts Yes 07/20/2025 Based on last me nstrual period of 10/13/2024 Encounters Date Type Department Care Team Description 03/31/2025 1:45 PM CDT - 03/31/2025 11:59 PM CDT Hospital Encounter [facility] [address] [place] [id number] Maix Henderson DO CARTRIDGE FILLER Discharge Disposition: Home or Self Care 03/28/2025 Telephone [facility] [address] [place] [address] Maia Rico RN Results (LM for patient earlier to call back for lab result review. Patient returning call now. ) 03/21/2025 1:35 PM CDT - 03/21/2025 11:59 PM CDT Hospital Encounter [facility] [address] [place] [address] Anand Rodriguez MD [employer]TRID[employer] FILLER Discharge Disposition: Home or Self Care 03/21/2025 Travel 03/05/2025 9:35 AM CDT - 03/05/2025 11:59 PM CDT Hospital Encounter [facility] [address] [place] [address] Padma Diggs MD Discharge Disposition: Home or Self Care 02/18/2025 3:14 PM CDT - 02/18/2025 11:59 PM CDT Hospital Encounter [facility] [address] [place] [id number] Cecilio Covarrubias MD Discharge Disposition: Home or Self Care from Last 3 Months Family History Relation [...] Sign Reading Time Taken Comments Blood Pressure 116/73 03/05/2025 10:29 AM CDT Pulse 97 03/05/2025 10:29 AM CDT Temperature - - Respiratory Rate - - Oxygen Saturation - - Inhaled Oxygen Concentration - - Weight 59.4 kg (131 lb) 03/05/2025 10:29 AM CDT Height 157.5 cm (5' 2) 03/05/2025 10:29 AM CDT Body Mass Index 23.96 03/05/2025 10:29 AM CDT Plan of Treatment Health Maintenance Due Date Last Done Comments HPV VACCINE (1 - 3-dose series) 2016 HEPATITIS C SCREENING 04/22/2019 DTAP/TDAP/TD VACCINES (1 - Tdap) 2020 HEPATITIS B VACCINE (1 of 3 - 19+ 3-dose series) 2020 PNEUMOCOCCAL VACCINE (1 of 2 - PCV) 2020 DEPRESSION SCREENING 07/10/2024 COVID-19 VACCINE (1 - season) 2025 INFLUENZA VACCINE (#1) 2025 6, 08/02/2013, 08/07/2012, Additional history exists OB-ONE HOUR GLUCOSE 04/13/2025 OB-TDAP CURRENT 04/20/2025 08/07/2012 OB-RHOGAM INJECTION 04/27/2025 Respiratory Syncytial Virus (RSV) Vaccine Pt: or over 60 yrs (1 - Risk 1-dose series) 05/25/2025 CHLAMYDIA/GONORRHEA SCREENING 12/31/2025 12/31/2024, 05/06/2024 PAP SMEAR 01/01/2028 12/31/2024, 12/31/2024 ZOSTER VACCINE (1 of 2) 2051 HIV SCREENING Completed 01/21/2025 HIB VACCINE Aged Out No longer eligi ble based on patient's age to complete this topic MENINGOCOCCAL (Group B) VACCINE SHARED DECISION-MAKING Aged Out No longer eligible based on patient's age to complete this topic MENINGOCOCCAL GROUPS A/C/Y/W VACCINE Aged Out No longer eligible based on patient's age to complete this topic Procedures Procedure Name Priority Date/Time Associated Diagnosis Comments SONOGRAM - COMPLETE Routine 03/31/2025 1 :55 PM CDT History of anemia Prior poor obstetrical history in second trimester, antepartum: mid trimester loss Tobacco use complicating , unspecified trimester (HCC) 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, antepartum (HCC) 18 weeks gestation of (HCC) Encounter for screening for cervical length (HCC) SONOGRAM - COMPLETE Routine 03/21/2025 1 :51 PM CDT History of anemia Prior poor obstetrical history in second trimester, antepartum: mid trimester loss Tobacco use complicating , unspecified trimester (HCC) 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, antepartum (HCC) 18 weeks gestation of (HCC) Encounter for screening for cervical length (HCC) BRITTANY BLOOD SCREEN W/REFLEX TITER 03/21/2025 11:10 AM CDT ANTIPHOSPHOLIPID ANTIBODY PANEL 03/21/2025 11:10 AM CDT SONOGRAM - COMPLETE Routine 03/05/2025 9 :39 AM CDT History of anemia Prior poor obstetrical history in second trimester, antepartum: mid trimester loss Tobacco use complicating , unspecified trimester (HCC) 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 Linked Results Indication ======== Incomplete anatomy History of PTL/PTD in previous , currently Delivered at 21 weeks PPROM History ====== OB History 4. Para 1 [id number] 1. miscarriage (20 - 23 weeks) 2018. Gest. age 21 w + 0 d. Sex of child: male. Details: 2. miscarriage. Details: 2022 Lab Tests Test Date Result Not Performed Maternal Assessment Physical Exam Height 157 cm, 5 ft 2 in. Weight 61 kg, 135 lb. Initial weight 57 kg, 125 lb. BMI 24.69 kg/m . Initial BMI 22.86 kg/m . Weight gain 5 kg, 10 lb Method ====== Transabdominal ultrasound. View: Sufficient ========= Lombardo . Number of fetuses: 1 Dating ====== Date Details Gest. age DOMINGA LMP 10/13/2024 24 w + 1 d 07/20/2025 Stated DOMINGA 24 w + 1 d 07/20/2025 U/S 03/31/2025 based upon AC, BPD, Femur, HC 23 w + 6 d 07/22/2025 Assigned dating based on the LMP, selected on 02/05/2025 24 w + 1 d 07/20/2025 General Evaluation Cardiac activity present. FHR 145 bpm. Presentation: breech Placenta: Placental site: posterior no previa Umbilical cord: Cord vessels: 3 vessel cord. Insertion site: normal insertion Amniotic fluid: Amount of AF: normal. MVP 2.6 cm Biometry BPD 54.2 mm 22w 3d 4% Hadlock HC 211.3 mm 23w 1d 7% Hadlock Nuchal fold 3.6 mm AC 208.8 mm 25w 3d 80% Hadlock Femur 43.8 mm 24w 3d 45% Hadlock Humerus 42.1 mm 25w 2d 77% Yonis HC / AC 1.01 Weight Calculation: EFW 722 g 65% Hadlock EFW (lb,oz) 1 lb 9 oz EFW by Hadlock (RIG-NO-BU-FL) appropriate Growth Overview Exam date GA BPD (mm) HC (mm) AC (mm) FL (mm) HL (mm) EFW (g) 02/05/2025 16w 3d 36.2 78% 136.7 74% 115 78% 23 65% 24 88% 181 82% 03/05/2025 20w 3d 49.9 76% 178.5 36% 155.5 54% 38.1 92% 33.6 83% 412 86% 03/31/2025 24w 1d 54.2 4% 211.3 7% 208.8 80% 43.8 45% 42.1 77% 722 65% Anatomy The following structures appear normal: Head / Neck Cavum septi pellucidi. Nuchal fold. Abdomen Stomach. Kidneys. Bladder. The following structures were documented previously: Head / Neck Cranium. Lateral ventricles. Choroid plexus. Midline falx. Cerebellum. Cisterna magna. Thalami. Face Lips. Profile. Nose. Nasal bone. Orbits. Heart / Thorax 4-chamber view. RVOT view. LVOT view. 3-vessel view. 3-dqybci-opiplwn view. Situs. Aortic arch view. Bicaval view. Ductal arch view. Great vessels. Right lung. Left lung. Diaphragm. Abdomen Cord insertion. Bowel. Genitals. Spine Cervical spine. Thoracic spine. Lumbar spine. Sacral spine. Extremities / Skeleton Arms. Hands. Legs. Feet. sex: male. Impression ========= Here today for completion of the anatomical survey and interval growth ultrasound. She had opted not to have any screening for aneuploidy. Single, live, intrauterine at 24w 1d The size is appropriate for the established gestational age. The amniotic fluid volume is normal. Normal appearing posterior placenta. No major malformations were seen within the limitations of ultrasound. The anatomical survey is now complete. Comment ======== The biometry is showing good interval growth the estimated weight is appropriate for the gestational age. the only lagging measurements of the head measurements but the measurements are still within the gestational age range. This is a normal variant. There were no intracranial abnormalities noted. No bony/skeletal abnormalities. The amniotic fluid volume is normal and there were good movements noted. The remainder of the anatomical survey showed no gross abnormalities. Both ultrasound and screening/testing have their limitations in detecting all congenital anomalies and chromosomal abnormalities/inh erited disorders or genetic syndromes. Follow-up ======== As previously discussed in consultation on 02/05/2025 patient will return for interval growth ultrasound at 32 weeks and will also reevaluate head size. Depending on those findings also determine further management. labor and preeclampsia precautions along with kick counts. Thank you for allowing us to partake in your patient's care. Coding ====== Diagnoses O09.212: Supervision of with history of pre-term labor Z36.2: Encounter for other screening follow-up O09.212: Supervision of with history of pre-term labor Procedures 69197: US Preg Uterus Follow Up Link Trigger PACS Anatomical Region Laterality Modality Other 03/31/2025 1:55 PM CDT R Rancho Blount MD [facility] ORDERABLES Edited Result - Final * ANTIPHOSPHOLIPID ANTIBODY PANEL (03/21/2025 11:10 AM CDT) Cardiolipin Antibody IgG <2.0 GPL-U/mL [facility] Comment: Value Interpretation ----- < 20.0 Antibody not detected > or = 20.0 Antibody detected The antiphospholipid antibody syndrome (APS) is a clinical-pathologic correlation that includes a clinical event (e.g. arterial or venous thrombosis, morbidity) and persistent positive antiphospholipid antibodies (IgM, IgG Cardiolipin or b2GPI antibodies greater than the 99th percentile; or a lupus anticoagulant). International consensus guidelines for APS suggest waiting at least 12 weeks before retesting to confirm antibody persistence. The [facility] immunological classification criteria for systemic lupus erythematosus (SLE) include testing for isotype IgA, which has yet to be incorporated into APS criteria. Low level antiphospholipid antibodies may sometimes be detected in the setting of infection, drug therapy or aging. For additional information, please refer to http://[employer].TRAFI/faq/KUS295 (This link is being provided for informational/ educational purposes only.) Cardiolipin Antibody IgM <2.0 MPL-U/mL [facility] Comment: Value Interpretation ----- < 20.0 Antibody not detected > or = 20.0 Antibody detected The antiphospholipid antibody syndrome (APS) is a clinical-pathologic correlation that includes a clinical event (e.g. arterial or venous thrombosis, morbidity) and persistent positive antiphospholipid antibodies (IgM, IgG Cardiolipin or b2GPI antibodies greater than the 99th percentile; or a lupus anticoagulant). International consensus guidelines for APS suggest waiting at least 12 weeks before retesting to confirm antibody persistence. The [facility] immunological classification criteria for systemic lupus erythematosus (SLE) include testing for isotype IgA, which has yet to be incorporated into APS criteria. Low level antiphospholipid antibodies may sometimes be detected in the setting of infection, drug therapy or aging. For additional information, please refer to http://[employer]/faq/LKL747 (This link is being provided for informational/ educational purposes only.) Cardiolipin Antibody IgA <2.0 APL-U/mL [facility] Comment: Value Interpretation ----- < 20.0 Antibody not detected > or = 20.0 Antibody detected The antiphospholipid antibody syndrome (APS) is a clinical-pathologic correlation that includes a clinical event (e.g. arterial or venous thrombosis, morbidity) and persistent positive antiphospholipid antibodies (IgM, IgG Cardiolipin or b2GPI antibodies greater than the 99th percentile; or a lupus anticoagulant). International consensus guidelines for APS suggest waiting at least 12 weeks before retesting to confirm antibody persistence. The [facility] immunological classification criteria for systemic lupus erythematosus (SLE) include testing for isotype IgA, which has yet to be incorporated into APS criteria. Low level antiphospholipid antibodies may sometimes be detected in the setting of infection, drug therapy or aging. For additional information, please refer to http://[employer].TRAFI/faq/HAP498 (This link is being provided for informational/ educational purposes only.) Lupus Anticoagulant NOT DETECTED [facility] Comment: A Lupus Anticoagulant is not detected. For more information on this test, go to: http://[employer]/faq/LHJ33e7 (This link is being provided for informational/ educational purposes only.) This interpretation is based on the following test results: PTT LA Screen 36 < OR = 40 sec [facility] dRVVT Screen 36 < OR = 45 sec [facility] Beta-2 Glycoprotein I Antibody IgG <2.0 U/mL [facility] Comment: Value Interpretation ----- < 20.0 Antibody not detected > or = 20.0 Antibody detected The antiphospholipid antibody syndrome (APS) is a clinical-pathologic correlation that includes a clinical event (e.g. arterial or venous thrombosis, morbidity) and persistent positive antiphospholipid antibodies (IgM, IgG Cardiolipin or b2GPI antibodies greater than the 99th percentile; or a lupus anticoagulant). International consensus guidelines for APS suggest waiting at least 12 weeks before retesting to confirm antibody persistence. The [facility] immunological classification criteria for systemic lupus erythematosus (SLE) include testing for isotype IgA, which has yet to be incorporated into APS criteria. Low level antiphospholipid antibodies may sometimes be detected in the setting of infection, drug therapy or aging. For additional information, please refer to http://[employer]/faq/THL806 (This link is being provided for informational/ educational purposes only.) Beta-2 Glycoprotein I Antibody IgA <2.0 U/mL [facility] Comment: Value Interpretation ----- < 20.0 Antibody not detected > or = 20.0 Antibody detected The antiphospholipid antibody syndrome (APS) is a clinical-pathologic correlation that includes a clinical event (e.g. arterial or venous thrombosis, morbidity) and persistent positive antiphospholipid antibodies (IgM, IgG Cardiolipin or b2GPI antibodies greater than the 99th percentile; or a lupus anticoagulant). International consensus guidelines for APS suggest waiting at least 12 weeks before retesting to confirm antibody persistence. The [facility] immunological classification criteria for systemic lupus erythematosus (SLE) include testing for isotype IgA, which has yet to be incorporated into APS criteria. Low level antiphospholipid antibodies may sometimes be detected in the setting of infection, drug therapy or aging. For additional information, please refer to http://[employer].TRAFI/faq/SEE392 (This link is being provided for informational/ educational purposes only.) Beta-2 Glycoprotein I Antibody IgM <2.0 U/mL [facility] Comment: Value Interpretation ----- < 20.0 Antibody not detected > or = 20.0 Antibody detected The antiphospholipid antibody syndrome (APS) is a clinical-pathologic correlation that includes a clinical event (e.g. arterial or venous thrombosis, morbidity) and persistent positive antiphospholipid antibodies (IgM, IgG Cardiolipin or b2GPI antibodies greater than the 99th percentile; or a lupus anticoagulant). International consensus guidelines for APS suggest waiting at least 12 weeks before retesting to confirm antibody persistence. The [facility] immunological classification criteria for systemic lupus erythematosus (SLE) include testing for isotype IgA, which has yet to be incorporated into APS criteria. Low level antiphospholipid antibodies may sometimes be detected in the setting of infection, drug therapy or aging. For additional information, please refer to http://[employer].TRAFI/faq/JEZ853 (This link is being provided for informational/ educational purposes only.) Test Performed at: [facility] [address] [address] OTTONIEL WOO 03/21/2025 11:1 0 AM CDT 03/21/2025 11:12 AM CDT Padma Diggs MD LAB - SEROLOGY ORDERABLES Final Result Needle [id number] [place] [address] * BRITTANY BLOOD SCREEN W/REFLEX TITER (03/21/2025 11:10 AM CDT) BRITTANY Screen NEGATIVE NEGATIVE [facility] Comment: BRITTANY IFA is a first line screen for detecting the presence of up to approximately 150 autoantibodies in various autoimmune diseases. A negative BRITTANY IFA result suggests an BRITTANY-associated autoimmune disease is not present at this time, but is not definitive. If there is high clinical suspicion for Sjogren's syndrome, testing for anti-SS-A/Ro antibody should be considered. Anti-Zita-1 antibody should be considered for clinically suspected inflammatory myopathies. AC-0: Negative International Consensus on BRITTANY Patterns (https://doi.org/10.1515/fasu-1980-1134) For additional information, please refer to http://education.[employer].mycirQle/faq/PCB161 (This link is being provided for informational/ educational purposes only.) Test Performed at: [facility] [address] [place] [address] DAVIDA LIPSCOMB MD 03/21/2025 11:1 0 AM CDT 03/21/2025 11:12 AM CDT Padma Diggs MD LAB - CHEMISTRY ORDERABLES Jeanne lantigua Result [facility] [id number] [place] [address] from Last 3 Months Insurance [facility]
[2025-05-19 20:05] VITALS: BP 111/60; PULSE 125; RESP 61; TEMP 36.3; O2SAT 100
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
--- OUTSIDE RECORDS SUMMARY | 2025-05-19 21:25 | XMS_ITS | Clinical Summary ---
Author Organization [facility] Address [address] [place] [address] Care Team Providers Care Way Inspector Name Role Phone Unavailable Primary Care Provider Unavailabl e Source Comments [facility],non-owned Affiliates and Associated Physician Practices is amultiple site organization consisting of ambulatory clinics and hospital sitesin [place], [place], [place]. This disclosure is being madepursuant to the Care Everywhere program and may not contain all information available regarding this patient. Last updated 18.[facility] Allergies No known active allergies Medications * [...] - 03/31/2025 11:59 PM CDT Hospital Encounter [facility] [address] [place] [id number] Maxi Henderson DO [employer] Discharge Disposition: Home or Self Care 03/28/2025 Telephone [facility] [address] [place] [address] Maia Rico RN Results (LM for patient earlier to call back for lab result review. Patient returning call now. ) 03/21/2025 1:35 PM CDT - 03/21/2025 11:59 PM CDT Hospital Encounter [facility] [address] [place] [address] Anand Rodriguez MD [employer] Discharge Disposition: Home or Self Care 03/21/2025 Travel 03/05/2025 9:35 AM CDT - 03/05/2025 11:59 PM CDT Hospital Encounter [facility] [address] [place] [address] Padma Diggs MD Discharge Disposition: Home or Self Care 02/18/2025 3:14 PM CDT - 02/18/2025 11:59 PM CDT Hospital Encounter [facility] [address] [place] [id number] Cecilio Covarrubias MD Discharge Disposition: Home or [...] History ====== OB History 4. Para 1 [id number] 1. miscarriage (20 - 23 weeks) 2018. [...] 1 lb 9 oz EFW by Hadlock ([id number]) appropriate Growth Overview Exam date [place] BPD [...] view. RVOT view. LVOT view. 3-vessel view. 0-zhcjaw-bjpjbtb view. Situs. Aortic arch view. Bicaval view. [...] of with history of pre-term labor Procedures 77133: US Preg Uterus Follow Up [employer] PACS Anatomical Region Laterality Modality Other 03/31/2025 1:55 PM CDT R Rancho Blount MD [facility] ORDERABLES Edited Result - Final * [...] aging. For additional information, please refer to http://TargetingMantra.Huaqi Information Digital/faq/HLG130 (This link is being provided for informational/ [...] aging. For additional information, please refer to http://Qeexo/faq/WEM396 (This link is being provided for informational/ [...] aging. For additional information, please refer to http://TargetingMantra.Huaqi Information Digital/faq/PEY191 (This link is being provided for informational/ educational purposes only.) Lupus Anticoagulant NOT DETECTED [facility] Comment: A Lupus Anticoagulant is not detected. For more information on this test, go to: http://Qeexo/faq/DEQ16y0 (This link is being provided for informational/ [...] aging. For additional information, please refer to http://Qeexo/faq/LVT660 (This link is being provided for informational/ [...] aging. For additional information, please refer to http://TargetingMantra.Huaqi Information Digital/faq/XFA434 (This link is being provided for informational/ [...] aging. For additional information, please refer to http://TargetingMantra.Huaqi Information Digital/faq/LUF524 (This link is being provided for informational/ educational purposes only.) Test Performed at: [facility] [address] [address] OTTONIEL WOO 03/21/2025 11:1 0 AM CDT 03/21/2025 11:12 AM CDT Padma Diggs MD LAB - SEROLOGY ORDERABLES Final Result [facility] [id number] [place] [address] * BRITTANY BLOOD SCREEN W/REFLEX TITER (03/21/2025 [...] AC-0: Negative International Consensus on BRITTANY Patterns (https://doi.org/10.1515/vkxf-2235-9873) For additional information, please refer to http://education.Neuralieve.KidZui/faq/IQB811 (This link is being provided for informational/ educational purposes only.) Test Performed at: [facility] [address] [place] [address] DAVIDA LIPSCOMB MD 03/21/2025 11:1 0 AM CDT 03/21/2025 11:12 AM CDT Padma Diggs MD LAB - CHEMISTRY ORDERABLES Jeanne lantigua Result [facility] [address] [place] [address] from Last 3 Months Insurance [facility]
[2025-05-19] MEDS: ACETAMINOPHEN 500 MG TABLET 1000 MG PO (21:31)
[2025-05-19 21:52] LABS: Hematocrit 31.9 % (37.0-47.0); Hemoglobin 10.5 g/dL (12.0-15.0); Immature Granulocyte Percent A 1.0 % (0-0.5); Lymphocytes Absolute Auto 1.14 K/mm3 (0.9-3.2); Mean Corpuscular HGB Conc 32.9 g/dl (32-36); Mean Corpuscular Hemoglobin 27.4 pg (26-34); Mean Corpuscular Volume 83.3 fl (80-100); Nucleated Red Blood Cells Absolute Auto 0.000 K/mm3 (0.0-0.012); Nucleated Red Blood Cells Perc 0.0 % (0.0-0.2); Platelet Count Result 162 k/mm3 (150-375); Red Blood Count 3.83 M/mm3 (4.2-5.4); White Blood Count 8.1 K/mm3 (4.5-10.0)
[2025-05-19 22:03] LABS: Alanine Aminotransferase 15 U/L (6-35); Albumin Level 4.1 g/dL (3.5-5.1); Alkaline Phosphatase 84 U/L (38-126); Anion Gap 6 mmol/L (4-12); Aspartate Amino Transferase 26 U/L (14-36); Bilirubin,Total 0.4 mg/dL (0.2-1.3); Blood Urea Nitrogen 6 mg/dL (7-17); Calcium 8.8 mg/dL (8.4-10.2); Carbon Dioxide 21 mmol/L (22-30); Chloride 107 mmol/L (98-107); Estimated CRCL calculation 92 ml/min; Estimated Glomerular Filt Rate > 60; Glucose 94 mg/dL (65-110); Potassium 3.3 mmol/L (3.4-5.0); Sodium 134 mmol/L (137-145); Total Protein 7.3 g/dL (6.3-8.2)
[2025-05-19 22:12] LABS: Add Urine Microscopic? YES; Appearance Urine Cloudy (Clear); Glucose Urine UA Negative (Negative); Leukocyte Esterase Ur 1+ LEU/UL (Negative); Nitrate Urine Negative (Negative); Non Pathogenic Casts >20; Specific Grav Ur 1.027 (1.001-1.035)
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
[2025-05-19 23:12] VITALS: BP 121/73; PULSE 109; RESP 18; TEMP 36.6; O2SAT 100
[2025-05-19 23:44] LABS: Beta HCG Quantitative 40218.00 mIU/ML
== END 2025-05-19 23:59 | disposition left against medical advice (07) ==
LOC: ANHED 21:24 → ANHOBPP 23:24
PROVIDERS: Emergency Provider Student in an Organized Health Care Education/Training Program
DX: O9A.313 Physical abuse complicating pregnancy, third trimester (principal); S41.152A Open bite of left upper arm, initial encounter; Y04.1XXA Assault by human bite, initial encounter; Z3A.31 31 weeks gestation of pregnancy; Y07.030 Male partner, current, perpetrator of maltreatment and neglect
CPT/HCPCS: 36415; 76815; 76819; 80053; 81001; 84702; 85025; 99284; A9270